=== PATIENT | male | born 1955 | race Caucasian/White ===

== ENCOUNTER 2016-07-07 09:34 | Day surgery (SDC) | payer OTHER, BC ==
[~2016-07-07] VITALS: Ht 176.5 cm; Wt 92.9 kg
[~2016-07-07 09:34] MED LIST: AMLODIPINE BESYL5 MG PO; APRESOLINE100 MG PO; ASPIR 8181 M1 PO; ATORVASTATIN CA20 MG PO; BENICAR20 MG PO; CENTRUM SILVER1 EAC1 PO; DIALYVITE 3,001 EACH PO; DOXAZOSIN MESYLA2 MG PO; EPOGEN,PRO10000 UNIT IV; EPOGEN,PRO4000 UNITS; ESCITALOPRAM OX10 MG PO; FIORICET,ESG1 TABLET PO; FUROSEMIDE40 MG PO; GENTAMICIN SULF30 GM TP; GOLD BOND ULT D96 GM TP; HUMALOG100 UNIT/2 SC; HYDRALAZINE HC100 MG PO; INSULIN; ISOSORBIDE MONO30 MG PO; Imdur PO; LEVEMIR FL100 UNIT/1 SC; LEVEMIR FL100 UNITS/ SC; LIPITOR20 MG PO; LOPRESSOR50 MG PO; LOSARTAN POTASS50 MG PO; LYRICA50 MG PO; Lasix PO; Levaquin PO; Lopressor PO; NEXIUM40 MG PO; NITROSTAT0.4 MG SL; ONGLYZA5 MG PO; PANTOPRAZOLE SO40 MG PO; PERCOCET 5/31 TABLET PO; PROCRIT10000 UNI1 IV; PROCRIT10000 UNI1 SC; Percocet 5/325,Endoc PO; Protonix PO; Rocaltrol PO; Sodium Bicarbonate PO; TYLENOL COLD M1 EAC1; TYLENOL COLD M1 EAC1 PO; TYLENOL EXTRA500 MG PO; TYLENOL REGULA325 MG PO; VANCOCIN HCL125 MG PO; VICODIN 5-3001 EACH PO; VITAMIN D1000 INTUN PO
[2016-07-07 10:13] LABS: POINT-OF-CARE METER ID UU13113696
[2016-07-07] MEDS ORDERED: ASPIR 8181 M1 PO (10:19)
[2016-07-07 14:09] LABS: POINT-OF-CARE METER ID UU13113819
[2016-07-07 16:05] VITALS: BP 161/99; BP 169/99
[2016-07-07 20:00] VITALS: BP 181/76
[2016-07-07 21:11] LABS: POINT-OF-CARE METER ID UU13113698
[2016-07-07 21:15] LABS: C DIFF TOXIN NEGATIVE (NEGATIVE)
[2016-07-07 21:21] LABS: PROBE CHECK PASS; SPECIMEN PROCESSING CONTROL PASS
[2016-07-08 04:00] VITALS: BP 165/79
[2016-07-08 05:51] LABS: EOSINOPHIL (%) 0 % (0-5); HEMATOCRIT 30.3 % (38.0-50.0); IMMATURE GRANULOCYTE (%) 0.3 % (0.0-0.7); LYMPHOCYTE COUNT 0.6 K/uL (1.0-2.8); MCH 29.1 PG (29.0-34.0); MCHC 34.3 G/DL (30.0-36.0); MEAN PLAT.VOLUME 10.4 uM^3 (9.0-12.4); MONOCYTE (%) 3.3 % (3-12); MONOCYTE COUNT 0.2 K/uL (0-0.8); NEUTROPHIL (%) 85.2 % (45-76); PLATELET COUNT 256 K/uL (156-360); RBC DIS.WIDTH-CV 12.9 % (11.8-14.6); RED BLOOD COUNT 3.58 M/uL (4.00-5.50)
[2016-07-08 06:35] LABS: ANION GAP 18 MEQ/L (2-14); CHLORIDE 90 MEQ/L (99-109); GFR ESTIMATE (CALCULATED) 7 mL/min/; GLUCOSE 453 mg/dL (70-99); POTASSIUM 4.4 MEQ/L (3.7-5.4); SAMPLE HEMOLYSIS CHECK 0; SAMPLE ICTERIC CHECK 0; SAMPLE LIPEMIA CHECK 0; SODIUM 128 MEQ/L (136-147); UREA NITROGEN (BUN) 51 mg/dL (9-23)
[2016-07-08 06:47] LABS: MCV 84.6 FL (86-99); WHITE BLOOD COUNT 5.8 K/uL (4.1-10.2)
[2016-07-08 07:10] VITALS: BP 179/99
[2016-07-08] MEDS ORDERED: CLOPIDOGREL75 MG PO (10:57)
[2016-07-08] MEDS ORDERED: ASPIR-LOW81 MG PO (10:57)
== END 2016-07-08 14:12 | disposition home or self-care (01) ==
LOC: CATH 09:34 → 2SOUTH 13:17 → 4EAST 13:17
PROVIDERS: Internal Medicine Cardiovascular Disease
DX: R07.9 Chest pain, unspecified (principal); I25.10 Atherosclerotic heart disease of native coronary artery without angina pectoris; R06.09 Other forms of dyspnea; I25.5 Ischemic cardiomyopathy; I12.0 Hypertensive chronic kidney disease with stage 5 chronic kidney disease or end stage renal disease; E11.22 Type 2 diabetes mellitus with diabetic chronic kidney disease; N18.6 End stage renal disease; Z99.2 Dependence on renal dialysis; I27.2 Other secondary pulmonary hypertension; D64.9 Anemia, unspecified; Z79.4 Long term (current) use of insulin; Z79.82 Long term (current) use of aspirin; Z88.0 Allergy status to penicillin
CPT/HCPCS: 80048; 82948; 85025; 85347; 87493; 93005; C1725; C1769; C1874; C1887; G0378; J0153; J0583; J1200; J1644; J1815; J2250; J2405; J2930; J3010; J7050; S0028

== ENCOUNTER 2016-07-11 14:58 | Inpatient (IN) | payer OTHER, BC ==
[~2016-07-11] VITALS: Ht 175.3 cm; Wt 92.0 kg
[~2016-07-11 14:58] MED LIST changes: +ASPIR-LOW81 MG PO; +CLOPIDOGREL75 MG PO
[2016-07-11 15:58] LABS: CHLORIDE 92 mEq/L (99-109); SODIUM 128 mEq/L (136-147)
[2016-07-11 16:00] LABS: GLUCOSE 277 mg/dL (70-99); HEMATOCRIT 27.1 % (38.0-50.0); MCH 29.6 PG (29.0-34.0); MCHC 34.7 G/DL (30.0-36.0); MCV 85.2 FL (86-99); MEAN PLAT.VOLUME 10.2 uM^3 (9.0-12.4); PLATELET COUNT 241 K/uL (156-360); RBC DIS.WIDTH-CV 12.9 % (11.8-14.6); RBC DIS.WIDTH-SD 40.2 % (39-53); RED BLOOD COUNT 3.18 M/uL (4.00-5.50); WHITE BLOOD COUNT 20.7 K/uL (4.1-10.2)
[2016-07-11 16:01] LABS: ANION GAP 16 MEQ/L (2-14)
[2016-07-11 16:02] LABS: POTASSIUM 3.3 mEq/L (3.7-5.4); TOTAL BILIRUBIN 0.3 mg/dL (0.0-1.0)
[2016-07-11 16:04] LABS: ALKALINE PHOSPHATASE 97 IU/L (3-129); GFR ESTIMATE (CALCULATED) 7 mL/min/
[2016-07-11 16:05] LABS: UREA NITROGEN (BUN) 49 mg/dL (9-23)
[2016-07-11 16:06] LABS: DIRECT BILIRUBIN 0.1 mg/dL (0.0-0.3); TROP-I INTERPRETATION INDETERMINATE
[2016-07-11 16:07] LABS: LIPASE 16 U/L (1.0-51.0)
[2016-07-11 16:09] LABS: C DIFF TOXIN ND (NEGATIVE)
[2016-07-11 17:29] LABS: C DIFF TOXIN NEGATIVE (NEGATIVE)
[2016-07-11 17:33] LABS: INTER. NORMALIZED RATIO 1.2; PROTHROMBIN TIME 12.7 (9.2-11.2)
[2016-07-11 17:49] LABS: PROBE CHECK PASS; SPECIMEN PROCESSING CONTROL PASS
[2016-07-11] MEDS ORDERED: PLAVIX75 MG PO (18:24)
[2016-07-11] MEDS ORDERED: LO-DOSE ASPIRIN81 M1 PO (18:25)
[2016-07-11] MEDS ORDERED: K-DUR20 MEQ PO (18:26)
[2016-07-11] MEDS ORDERED: PHOSLYRA667 MG/5 M PO (18:26)
[2016-07-11 20:00] VITALS: BP 158/77
[2016-07-11 20:10] VITALS: BP 158/77
[2016-07-11 21:15] LABS: POINT-OF-CARE METER ID UU13113781
[2016-07-11 23:00] VITALS: BP 155/78
[2016-07-12 00:56] LABS: TROP-I INTERPRETATION INDETERMINATE; TROPONIN-I 0.58 ng/mL (0.0-0.30)
[2016-07-12 03:55] VITALS: BP 175/91
[2016-07-12 07:49] LABS: POINT-OF-CARE METER ID UU13113781
[2016-07-12 08:10] VITALS: BP 155/76
[2016-07-12 09:08] LABS: HEMATOCRIT 24.7 % (38.0-50.0); MCH 29.4 PG (29.0-34.0); MCV 86.4 FL (86-99); MEAN PLAT.VOLUME 10.5 uM^3 (9.0-12.4); PLATELET COUNT 209 K/uL (156-360); RBC DIS.WIDTH-CV 13.1 % (11.8-14.6); RBC DIS.WIDTH-SD 41.3 % (39-53); RED BLOOD COUNT 2.86 M/uL (4.00-5.50); WHITE BLOOD COUNT 17.7 K/uL (4.1-10.2)
[2016-07-12 09:18] LABS: ANION GAP 14 MEQ/L (2-14); CHLORIDE 94 MEQ/L (99-109); POTASSIUM 3.9 MEQ/L (3.7-5.4); SAMPLE HEMOLYSIS CHECK 0; SAMPLE ICTERIC CHECK 0; SAMPLE LIPEMIA CHECK 0; SODIUM 129 MEQ/L (136-147)
[2016-07-12 09:29] LABS: TROP-I INTERPRETATION POSITIVE; TROPONIN-I 0.71 ng/mL (0.0-0.30)
[2016-07-12 09:34] LABS: GFR ESTIMATE (CALCULATED) 7 mL/min/; GLUCOSE 141 mg/dL (70-99); UREA NITROGEN (BUN) 52 mg/dL (9-23)
[2016-07-12 11:19] VITALS: BP 136/82
[2016-07-12 12:02] LABS: TYPE OF FLUID PD FLUID
[2016-07-12 12:31] LABS: BODY FLUID RBC'S 65 /MM^3 (0-100); BODY FLUID WBC'S 18200 /MM^3 (0-500); RED CELL AREA COUNTED 18; RED CELL DILUTION 1; WBC AREA COUNTED 0.4; WBC DILUTION 1; WHITE CELL RAW COUNT 728
[2016-07-12 13:09] LABS: BODY FLUID EOSINOPHILS 0 % (0-25); MONO RAW COUNT 4; MONONUCLEAR WBC'S 4 %; POLY RAW COUNT 96; POLYNUCLEAR WBC'S 96 % (0-25)
[2016-07-12 15:04] LABS: TROP-I INTERPRETATION POSITIVE; TROPONIN-I 0.62 ng/mL (0.0-0.30)
[2016-07-12 15:39] LABS: POINT-OF-CARE METER ID UU14174216
[2016-07-12 19:28] VITALS: BP 159/81
[2016-07-12 23:44] VITALS: BP 132/71
[2016-07-13 03:38] VITALS: BP 169/77
[2016-07-13 04:59] LABS: EOSINOPHIL (%) 1.5 % (0-5); EOSINOPHIL COUNT 0.2 K/uL (0-0.3); HEMATOCRIT 24.1 % (38.0-50.0); IMMATURE GRANULOCYTE (%) 0.4 % (0.0-0.7); IMMATURE GRANULOCYTE COUNT 0.1 K/uL; INSTRUMENT ABS NEUTROPHIL CT 10.2 K/uL; MCH 29.4 PG (29.0-34.0); MCV 86.4 FL (86-99); MEAN PLAT.VOLUME 10.7 uM^3 (9.0-12.4); MONOCYTE (%) 7.4 % (3-12); MONOCYTE COUNT 0.9 K/uL (0-0.8); NEUTROPHIL (%) 82.4 % (45-76); NEUTROPHIL COUNT 10.2 K/uL (1.8-6.4); PLATELET COUNT 231 K/uL (156-360); RBC DIS.WIDTH-CV 12.8 % (11.8-14.6); RBC DIS.WIDTH-SD 40.8 % (39-53); RED BLOOD COUNT 2.79 M/uL (4.00-5.50); WHITE BLOOD COUNT 12.4 K/uL (4.1-10.2)
[2016-07-13 05:11] LABS: CHLORIDE 96 mEq/L (99-109); MAGNESIUM 1.3 mg/dL (1.3-2.7); POTASSIUM 3.6 mEq/L (3.7-5.4); SODIUM 129 mEq/L (136-147)
[2016-07-13 05:14] LABS: ANION GAP 13 MEQ/L (2-14)
[2016-07-13 05:17] LABS: GFR ESTIMATE (CALCULATED) 7 mL/min/; UREA NITROGEN (BUN) 50 mg/dL (9-23)
[2016-07-13 05:20] LABS: GLUCOSE 236 mg/dL (70-99)
[2016-07-13 10:01] LABS: TROP-I INTERPRETATION INDETERMINATE; TROPONIN-I 0.48 ng/mL (0.0-0.30)
[2016-07-13 10:12] VITALS: BP 165/79
[2016-07-13 11:55] VITALS: BP 168/79
[2016-07-13 16:15] VITALS: BP 159/78
[2016-07-13 20:20] VITALS: BP 161/86
[2016-07-14] VITALS (7 sets, daily range): BP systolic 140–175; BP diastolic 64–82
[2016-07-14 05:56] LABS: EOSINOPHIL (%) 2.5 % (0-5); EOSINOPHIL COUNT 0.3 K/uL (0-0.3); HEMATOCRIT 25.7 % (38.0-50.0); IMMATURE GRANULOCYTE (%) 0.4 % (0.0-0.7); INSTRUMENT ABS NEUTROPHIL CT 8.4 K/uL; MCH 29.7 PG (29.0-34.0); MCHC 34.6 G/DL (30.0-36.0); MCV 85.7 FL (86-99); MEAN PLAT.VOLUME 10.6 uM^3 (9.0-12.4); MONOCYTE (%) 8.8 % (3-12); MONOCYTE COUNT 0.9 K/uL (0-0.8); NEUTROPHIL (%) 78.8 % (45-76); NEUTROPHIL COUNT 8.4 K/uL (1.8-6.4); PLATELET COUNT 254 K/uL (156-360); RBC DIS.WIDTH-CV 12.9 % (11.8-14.6); RBC DIS.WIDTH-SD 40.2 % (39-53); WHITE BLOOD COUNT 10.6 K/uL (4.1-10.2)
[2016-07-14 06:37] LABS: ANION GAP 15 MEQ/L (2-14); CHLORIDE 91 MEQ/L (99-109); GFR ESTIMATE (CALCULATED) 7 mL/min/; GLUCOSE 296 mg/dL (70-99); MAGNESIUM 1.6 mg/dl (1.3-2.7); POTASSIUM 3.4 MEQ/L (3.7-5.4); SAMPLE HEMOLYSIS CHECK 0; SAMPLE ICTERIC CHECK 0; SAMPLE LIPEMIA CHECK 0; SODIUM 130 MEQ/L (136-147); UREA NITROGEN (BUN) 44 mg/dL (9-23)
[2016-07-14 06:56] LABS: Estimated Average Glucose 174 mg/dL (70-123); HEMOGLOBIN A1c (GLYCOHEMOGLOB) 7.7 % HGB (Below 5.7)
[2016-07-14 07:35] LABS: POINT-OF-CARE METER ID UU13113781
[2016-07-15 04:52] VITALS: BP 150/73
[2016-07-15 06:49] LABS: EOSINOPHIL (%) 3.2 % (0-5); EOSINOPHIL COUNT 0.3 K/uL (0-0.3); HEMATOCRIT 25.5 % (38.0-50.0); IMMATURE GRANULOCYTE (%) 0.6 % (0.0-0.7); IMMATURE GRANULOCYTE COUNT 0.1 K/uL; INSTRUMENT ABS NEUTROPHIL CT 6.2 K/uL; LYMPHOCYTE COUNT 1.6 K/uL (1.0-2.8); MCHC 33.7 G/DL (30.0-36.0); MCV 85.9 FL (86-99); MEAN PLAT.VOLUME 10.2 uM^3 (9.0-12.4); MONOCYTE (%) 12.6 % (3-12); MONOCYTE COUNT 1.2 K/uL (0-0.8); NEUTROPHIL (%) 66.6 % (45-76); NEUTROPHIL COUNT 6.2 K/uL (1.8-6.4); PLATELET COUNT 238 K/uL (156-360); RBC DIS.WIDTH-SD 40.4 % (39-53); RED BLOOD COUNT 2.97 M/uL (4.00-5.50); WHITE BLOOD COUNT 9.3 K/uL (4.1-10.2)
[2016-07-15 07:16] LABS: ANION GAP 12 MEQ/L (2-14); CHLORIDE 93 MEQ/L (99-109); GFR ESTIMATE (CALCULATED) 7 mL/min/; POTASSIUM 3.2 MEQ/L (3.7-5.4); SAMPLE HEMOLYSIS CHECK 0; SAMPLE ICTERIC CHECK 0; SAMPLE LIPEMIA CHECK 0; SODIUM 131 MEQ/L (136-147); UREA NITROGEN (BUN) 39 mg/dL (9-23)
[2016-07-15 07:17] LABS: GLUCOSE 129 mg/dL (70-99)
[2016-07-15 09:20] VITALS: BP 157/68
[2016-07-15 13:55] VITALS: BP 118/66
[2016-07-15 14:29] LABS: TYPE OF FLUID PERITONEAL
[2016-07-15 15:45] LABS: BODY FLUID RBC'S 13 /MM^3 (0-100); BODY FLUID WBC'S 12 /MM^3 (0-500); RED CELL AREA COUNTED 18; RED CELL DILUTION 1; WBC AREA COUNTED 18; WBC DILUTION 1; WHITE CELL RAW COUNT 21
[2016-07-15 15:56] LABS: BODY FLUID EOSINOPHILS 1 % (0-25); MONO RAW COUNT 58; MONONUCLEAR WBC'S 58 %; POLY RAW COUNT 41; POLYNUCLEAR WBC'S 41 % (0-25)
[2016-07-15 16:37] VITALS: BP 145/74
[2016-07-15 19:54] VITALS: BP 131/66
[2016-07-15 23:30] VITALS: BP 142/69
[2016-07-16 04:54] VITALS: BP 149/71
[2016-07-16 06:14] LABS: EOSINOPHIL (%) 3.6 % (0-5); EOSINOPHIL COUNT 0.3 K/uL (0-0.3); HEMATOCRIT 26.2 % (38.0-50.0); IMMATURE GRANULOCYTE (%) 0.4 % (0.0-0.7); LYMPHOCYTE COUNT 1.6 K/uL (1.0-2.8); MCH 29.5 PG (29.0-34.0); MCV 86.8 FL (86-99); MEAN PLAT.VOLUME 10.6 uM^3 (9.0-12.4); MONOCYTE COUNT 1.1 K/uL (0-0.8); PLATELET COUNT 259 K/uL (156-360); RBC DIS.WIDTH-CV 13.1 % (11.8-14.6); RBC DIS.WIDTH-SD 41.5 % (39-53); RED BLOOD COUNT 3.02 M/uL (4.00-5.50); WHITE BLOOD COUNT 9.1 K/uL (4.1-10.2)
[2016-07-16 06:46] LABS: ANION GAP 11 MEQ/L (2-14); CHLORIDE 94 MEQ/L (99-109); GFR ESTIMATE (CALCULATED) 8 mL/min/; POTASSIUM 3.3 MEQ/L (3.7-5.4); SAMPLE HEMOLYSIS CHECK 0; SAMPLE ICTERIC CHECK 0; SAMPLE LIPEMIA CHECK 0; SODIUM 131 MEQ/L (136-147); UREA NITROGEN (BUN) 32 mg/dL (9-23)
[2016-07-16 06:48] LABS: GLUCOSE 93 mg/dL (70-99)
[2016-07-16 07:29] LABS: POINT-OF-CARE METER ID UU14174216
[2016-07-16 08:18] VITALS: BP 162/85
[2016-07-16 11:27] VITALS: BP 136/77
[2016-07-16 11:32] LABS: POINT-OF-CARE METER ID UU14174216
[2016-07-16 15:00] VITALS: BP 159/79
[2016-07-16 16:22] LABS: POINT-OF-CARE METER ID UU14174216
[2016-07-16 19:11] VITALS: BP 143/69
[2016-07-17 01:15] VITALS: BP 141/71
[2016-07-17 05:58] LABS: POINT-OF-CARE METER ID UU14174216
[2016-07-17 06:59] LABS: ANION GAP 10 MEQ/L (2-14); CHLORIDE 93 MEQ/L (99-109); GFR ESTIMATE (CALCULATED) 8 mL/min/; GLUCOSE 72 mg/dL (70-99); POTASSIUM 3.4 MEQ/L (3.7-5.4); SAMPLE HEMOLYSIS CHECK 0; SAMPLE ICTERIC CHECK 0; SAMPLE LIPEMIA CHECK 0; SODIUM 131 MEQ/L (136-147); UREA NITROGEN (BUN) 30 mg/dL (9-23)
[2016-07-17 07:01] LABS: VANCOMYCIN, TROUGH 14.6 MCG/ML (10-20)
[2016-07-17 07:52] VITALS: BP 140/60; BP 160/64
[2016-07-17 11:16] VITALS: BP 142/74
[2016-07-17 15:10] VITALS: BP 142/67
[2016-07-17 16:24] LABS: POINT-OF-CARE METER ID UU13113781
[2016-07-17 18:58] VITALS: BP 144/91
[2016-07-17 21:11] LABS: POINT-OF-CARE METER ID UU13113725
[2016-07-17 23:10] VITALS: BP 140/74
[2016-07-18 06:22] LABS: POINT-OF-CARE METER ID UU13113725
[2016-07-18 07:38] VITALS: BP 153/77
[2016-07-18 09:19] LABS: EOSINOPHIL (%) 2.8 % (0-5); EOSINOPHIL COUNT 0.3 K/uL (0-0.3); HEMATOCRIT 27.5 % (38.0-50.0); IMMATURE GRANULOCYTE (%) 0.8 % (0.0-0.7); IMMATURE GRANULOCYTE COUNT 0.1 K/uL; INSTRUMENT ABS NEUTROPHIL CT 6.5 K/uL; LYMPHOCYTE COUNT 1.4 K/uL (1.0-2.8); MCH 29.1 PG (29.0-34.0); MCHC 33.8 G/DL (30.0-36.0); MCV 85.9 FL (86-99); MONOCYTE (%) 6.7 % (3-12); MONOCYTE COUNT 0.6 K/uL (0-0.8); NEUTROPHIL (%) 73.6 % (45-76); NEUTROPHIL COUNT 6.5 K/uL (1.8-6.4); PLATELET COUNT 258 K/uL (156-360); RBC DIS.WIDTH-CV 12.7 % (11.8-14.6); RBC DIS.WIDTH-SD 40.2 % (39-53); WHITE BLOOD COUNT 8.9 K/uL (4.1-10.2)
[2016-07-18 09:53] LABS: ANION GAP 11 MEQ/L (2-14); CHLORIDE 90 MEQ/L (99-109); GFR ESTIMATE (CALCULATED) 9 mL/min/; SAMPLE HEMOLYSIS CHECK 1; SAMPLE ICTERIC CHECK 0; SAMPLE LIPEMIA CHECK 0; SODIUM 129 MEQ/L (136-147); UREA NITROGEN (BUN) 26 mg/dL (9-23)
[2016-07-18 09:54] LABS: GLUCOSE 140 mg/dL (70-99); POTASSIUM 3.9 MEQ/L (3.7-5.4)
[2016-07-18 10:59] LABS: POINT-OF-CARE METER ID UU13113725
[2016-07-18 11:28] LABS: POINT-OF-CARE METER ID UU13113725
[2016-07-18 21:54] LABS: POINT-OF-CARE METER ID UU13113725
[2016-07-18 22:03] VITALS: BP 147/84
[2016-07-18 23:21] VITALS: BP 149/68
[2016-07-19 05:17] VITALS: BP 133/69
[2016-07-19 06:12] LABS: POINT-OF-CARE METER ID UU13113725
[2016-07-19 08:08] LABS: VANCOMYCIN, TROUGH 19.9 MCG/ML (10-20)
[2016-07-19 08:39] VITALS: BP 130/69
[2016-07-19 10:51] LABS: POINT-OF-CARE METER ID UU13113725
[2016-07-19 16:40] VITALS: BP 138/78
[2016-07-19 21:15] LABS: POINT-OF-CARE METER ID UU13113725
[2016-07-19 22:00] VITALS: BP 160/77
[2016-07-20] VITALS: BP 146/71
[2016-07-20 05:31] VITALS: BP 151/72
[2016-07-20 07:11] LABS: HEMATOCRIT 24.3 % (38.0-50.0); MCHC 33.7 G/DL (30.0-36.0); MCV 85.9 FL (86-99); MEAN PLAT.VOLUME 10.1 uM^3 (9.0-12.4); PLATELET COUNT 230 K/uL (156-360); RBC DIS.WIDTH-CV 12.5 % (11.8-14.6); RBC DIS.WIDTH-SD 39.1 % (39-53); RED BLOOD COUNT 2.83 M/uL (4.00-5.50); WHITE BLOOD COUNT 6.9 K/uL (4.1-10.2)
[2016-07-20 07:30] VITALS: BP 159/79
[2016-07-20 07:37] LABS: ANION GAP 11 MEQ/L (2-14); CHLORIDE 89 MEQ/L (99-109); GFR ESTIMATE (CALCULATED) 10 mL/min/; SAMPLE HEMOLYSIS CHECK 1; SAMPLE ICTERIC CHECK 0; SAMPLE LIPEMIA CHECK 0; SODIUM 127 MEQ/L (136-147); UREA NITROGEN (BUN) 26 mg/dL (9-23)
[2016-07-20 07:39] LABS: GLUCOSE 238 mg/dL (70-99); POTASSIUM 4.5 MEQ/L (3.7-5.4)
[2016-07-20] MEDS ORDERED: ENDOCET 5-3251 EACH PO (08:34)
[2016-07-20] MEDS ORDERED: LOPERAMIDE2 MG PO (08:34)
[2016-07-20] MEDS ORDERED: IMDUR30 MG PO (08:34)
[2016-07-20] MEDS ORDERED: ZOFRAN4 MG PO (09:25)
[2016-07-20 11:44] LABS: POINT-OF-CARE METER ID UU13113725
== END 2016-07-20 12:30 | disposition home or self-care (01) | DRG 919 ==
LOC: EME 14:58 → EDOF 16:39 → 4EAST 16:39 → EDOF 16:39 → 4EAST 19:50 → 5EAST 07-17 16:43
PROVIDERS: Emergency Medicine; Hospitalist; Internal Medicine; Internal Medicine Nephrology; Nurse Practitioner Family; Physician Assistant Medical
PROC: 3E1M39Z Irrigation of Peritoneal Cavity using Dialysate, Percutaneous Approach (ICD-10-PCS; principal; 2016-07-12)
DX: T85.71XA Infection and inflammatory reaction due to peritoneal dialysis catheter, initial encounter (principal); K65.9 Peritonitis, unspecified; A41.9 Sepsis, unspecified organism; N18.6 End stage renal disease; E87.2 Acidosis; E87.1 Hypo-osmolality and hyponatremia; I24.8 Other forms of acute ischemic heart disease; I12.0 Hypertensive chronic kidney disease with stage 5 chronic kidney disease or end stage renal disease; Y84.1 Kidney dialysis as the cause of abnormal reaction of the patient, or of later complication, without mention of misadventure at the time of the procedure; E87.6 Hypokalemia; I25.10 Atherosclerotic heart disease of native coronary artery without angina pectoris; D63.1 Anemia in chronic kidney disease; E11.21 Type 2 diabetes mellitus with diabetic nephropathy; E11.22 Type 2 diabetes mellitus with diabetic chronic kidney disease; E11.319 Type 2 diabetes mellitus with unspecified diabetic retinopathy without macular edema; E11.40 Type 2 diabetes mellitus with diabetic neuropathy, unspecified; E11.51 Type 2 diabetes mellitus with diabetic peripheral angiopathy without gangrene; E78.2 Mixed hyperlipidemia; K21.9 Gastro-esophageal reflux disease without esophagitis; E66.9 Obesity, unspecified; Z68.29 Body mass index [BMI] 29.0-29.9, adult; Z79.4 Long term (current) use of insulin; Z79.02 Long term (current) use of antithrombotics/antiplatelets; Z99.2 Dependence on renal dialysis; Z95.5 Presence of coronary angioplasty implant and graft; Z88.0 Allergy status to penicillin; Z91.040 Latex allergy status
CPT/HCPCS: 71020; 74176; 80048; 80076; 80170; 80202; 82565; 82948; 83036; 83605; 83690; 83735; 84100; 84484; 85025; 85027; 85610; 85730; 87070; 87075; 87205; 87493; 89051; 93005; 99281; 99285; G0378; J1580; J1626; J1644; J1815; J2270; J2405; J3010; J3370; J3480; J7030; J7050; S0073

== ENCOUNTER 2016-08-31 08:39 | Observation (INO) | payer OTHER, BC ==
[2016-08-31] VITALS (16 sets, daily range): BP systolic 102–180; BP diastolic 55–84
[~2016-08-31] VITALS: Ht 175.3 cm; Wt 89.1 kg
[~2016-08-31 08:39] MED LIST changes: +ENDOCET 5-3251 EACH PO; +IMDUR30 MG PO; +K-DUR20 MEQ PO; +LO-DOSE ASPIRIN81 M1 PO; +LOPERAMIDE2 MG PO; +PHOSLYRA667 MG/5 M PO; +PLAVIX75 MG PO; +ZOFRAN4 MG PO
[2016-08-31 10:06] LABS: HEMATOCRIT 18.7 % (38.0-50.0); MCH 28.5 PG (29.0-34.0); MCHC 34.8 G/DL (30.0-36.0); MEAN PLAT.VOLUME 9.7 uM^3 (9.0-12.4); PLATELET COUNT 239 K/uL (156-360); RBC DIS.WIDTH-CV 12.9 % (11.8-14.6); RBC DIS.WIDTH-SD 38.5 % (39-53); RED BLOOD COUNT 2.28 M/uL (4.00-5.50); WHITE BLOOD COUNT 5.6 K/uL (4.1-10.2)
[2016-08-31 10:10] LABS: CHLORIDE 92 mEq/L (99-109); POTASSIUM 4.4 mEq/L (3.7-5.4); SODIUM 131 mEq/L (136-147)
[2016-08-31 10:12] LABS: GLUCOSE 171 mg/dL (70-99)
[2016-08-31 10:13] LABS: ANION GAP 13 MEQ/L (2-14)
[2016-08-31 10:16] LABS: GFR ESTIMATE (CALCULATED) 6 mL/min/
[2016-08-31 10:17] LABS: UREA NITROGEN (BUN) 38 mg/dL (9-23)
[2016-08-31 10:21] LABS: TROP-I INTERPRETATION NEGATIVE; TROPONIN-I 0.04 ng/mL (0.0-0.30)
[2016-08-31 10:31] LABS: POINT-OF-CARE METER ID UU13113702
[2016-08-31 10:59] LABS: INTER. NORMALIZED RATIO 1.1; PROTHROMBIN TIME 11.1 (9.2-11.2); PTT 31.5 (25-32)
[2016-08-31 14:27] LABS: POINT-OF-CARE METER ID UU14174216
[2016-08-31 16:39] LABS: POINT-OF-CARE USER ID NUTSLF44
[2016-08-31 19:04] LABS: TROP-I INTERPRETATION NEGATIVE; TROPONIN-I 0.04 ng/mL (0.0-0.30)
[2016-08-31 23:17] LABS: TROP-I INTERPRETATION NEGATIVE; TROPONIN-I 0.03 ng/mL (0.0-0.30)
[2016-09-01 00:38] VITALS: BP 171/84
[2016-09-01 04:05] VITALS: BP 179/88
[2016-09-01 07:56] LABS: EOSINOPHIL (%) 3.6 % (0-5); EOSINOPHIL COUNT 0.2 K/uL (0-0.3); HEMATOCRIT 22.5 % (38.0-50.0); IMMATURE GRANULOCYTE (%) 0.4 % (0.0-0.7); INSTRUMENT ABS NEUTROPHIL CT 3.7 K/uL; LYMPHOCYTE COUNT 1.1 K/uL (1.0-2.8); MCHC 34.2 G/DL (30.0-36.0); MCV 81.8 FL (86-99); MEAN PLAT.VOLUME 10.1 uM^3 (9.0-12.4); MONOCYTE (%) 9.5 % (3-12); MONOCYTE COUNT 0.5 K/uL (0-0.8); NEUTROPHIL (%) 66.7 % (45-76); NEUTROPHIL COUNT 3.7 K/uL (1.8-6.4); PLATELET COUNT 247 K/uL (156-360); RBC DIS.WIDTH-CV 13.2 % (11.8-14.6); RBC DIS.WIDTH-SD 39.3 % (39-53); WHITE BLOOD COUNT 5.5 K/uL (4.1-10.2)
[2016-09-01 08:03] LABS: RED BLOOD COUNT 2.75 M/uL (4.00-5.50)
[2016-09-01 08:15] VITALS: BP 176/84
[2016-09-01 08:27] LABS: CHLORIDE 93 mEq/L (99-109); POTASSIUM 4.5 mEq/L (3.7-5.4); SODIUM 131 mEq/L (136-147)
[2016-09-01 08:29] LABS: GLUCOSE 272 mg/dL (70-99)
[2016-09-01 08:30] LABS: ANION GAP 11 MEQ/L (2-14)
[2016-09-01 08:32] LABS: GFR ESTIMATE (CALCULATED) 7 mL/min/
[2016-09-01 08:33] LABS: UREA NITROGEN (BUN) 38 mg/dL (9-23)
[2016-09-01 11:43] VITALS: BP 162/78
== END 2016-09-01 14:57 | disposition home or self-care (01) ==
LOC: EME 08:39 → EDOF 10:36 → 4EAST 10:36
PROVIDERS: Emergency Medicine; Hospitalist; Internal Medicine; Internal Medicine Nephrology
PROC: 30233N1 Transfusion of Nonautologous Red Blood Cells into Peripheral Vein, Percutaneous Approach (ICD-10-PCS; principal; 2016-08-31)
DX: R07.89 Other chest pain (principal); S81.811A Laceration without foreign body, right lower leg, initial encounter; W22.03XA Walked into furniture, initial encounter; I16.1 Hypertensive emergency; I12.0 Hypertensive chronic kidney disease with stage 5 chronic kidney disease or end stage renal disease; E11.22 Type 2 diabetes mellitus with diabetic chronic kidney disease; E11.21 Type 2 diabetes mellitus with diabetic nephropathy; N18.6 End stage renal disease; E11.40 Type 2 diabetes mellitus with diabetic neuropathy, unspecified; E11.319 Type 2 diabetes mellitus with unspecified diabetic retinopathy without macular edema; Z99.2 Dependence on renal dialysis; G43.909 Migraine, unspecified, not intractable, without status migrainosus; K21.9 Gastro-esophageal reflux disease without esophagitis; F32.9 Major depressive disorder, single episode, unspecified; E78.5 Hyperlipidemia, unspecified; D64.9 Anemia, unspecified; I25.10 Atherosclerotic heart disease of native coronary artery without angina pectoris; I25.2 Old myocardial infarction
CPT/HCPCS: 71020; 80048; 82948; 84484; 85014; 85018; 85025; 85027; 85610; 85730; 86900; 86901; 86905; 86920; 93005; 99281; 99285; G0378; J0360; J1815; J2270; J2405; P9016

== ENCOUNTER 2016-10-21 21:34 | Emergency (ER) | payer OTHER, BC ==
[~2016-10-21] VITALS: Ht 175.3 cm; Wt 84.1 kg
[2016-10-21] MEDS ORDERED: NORCO 5/3251 TABLET PO (23:05)
[2016-10-21] MEDS ORDERED: CLINDAMYCIN HC300 MG PO (23:05)
[2016-10-21] MEDS ORDERED: MOTRIN600 MG PO (23:05)
[2016-10-21 23:14] VITALS: BP 133/78
== END 2016-10-21 23:15 | disposition home or self-care (01) ==
LOC: EME 21:34
DX: K02.9 Dental caries, unspecified (principal); Z88.0 Allergy status to penicillin; I25.10 Atherosclerotic heart disease of native coronary artery without angina pectoris; N18.9 Chronic kidney disease, unspecified; E11.22 Type 2 diabetes mellitus with diabetic chronic kidney disease
CPT/HCPCS: 99281; 99284

== ENCOUNTER 2016-11-15 20:17 | Emergency (ER) | payer OTHER, BC ==
[~2016-11-15] VITALS: Ht 175.3 cm; Wt 84.1 kg
[~2016-11-15 20:17] MED LIST changes: +CLINDAMYCIN HC300 MG PO; +MOTRIN600 MG PO; +NORCO 5/3251 TABLET PO
[2016-11-15 21:41] LABS: EOSINOPHIL (%) 4.7 % (0-5); EOSINOPHIL COUNT 0.3 K/uL (0-0.3); HEMATOCRIT 22.9 % (38.0-50.0); IMMATURE GRANULOCYTE (%) 0.3 % (0.0-0.7); INSTRUMENT ABS NEUTROPHIL CT 4.5 K/uL; LYMPHOCYTE COUNT 1.4 K/uL (1.0-2.8); MCH 30.4 PG (29.0-34.0); MCHC 36.7 G/DL (30.0-36.0); MEAN PLAT.VOLUME 9.4 uM^3 (9.0-12.4); MONOCYTE (%) 9.1 % (3-12); MONOCYTE COUNT 0.6 K/uL (0-0.8); NEUTROPHIL (%) 65.6 % (45-76); NEUTROPHIL COUNT 4.5 K/uL (1.8-6.4); PLATELET COUNT 244 K/uL (156-360); RBC DIS.WIDTH-CV 12.5 % (11.8-14.6); RBC DIS.WIDTH-SD 37.6 % (39-53); RED BLOOD COUNT 2.76 M/uL (4.00-5.50); WHITE BLOOD COUNT 6.8 K/uL (4.1-10.2)
[2016-11-15 21:52] LABS: CHLORIDE 92 mEq/L (99-109); POTASSIUM 3.7 mEq/L (3.7-5.4); SODIUM 130 mEq/L (136-147)
[2016-11-15 21:54] LABS: GLUCOSE 398 mg/dL (70-99)
[2016-11-15 21:56] LABS: ANION GAP 16 MEQ/L (2-14); TOTAL BILIRUBIN 0.5 mg/dL (0.0-1.0)
[2016-11-15 21:58] LABS: ALKALINE PHOSPHATASE 129 IU/L (3-129); GFR ESTIMATE (CALCULATED) 7 mL/min/
[2016-11-15 21:59] LABS: UREA NITROGEN (BUN) 51 mg/dL (9-23)
[2016-11-15 22:01] LABS: LIPASE 12 U/L (1.0-51.0)
[2016-11-15 22:42] LABS: TYPE OF FLUID PERITONEAL
[2016-11-15 23:07] LABS: BODY FLUID RBC'S < 1000 /MM^3 (0-100); BODY FLUID WBC'S 6 /MM^3 (0-500)
[2016-11-15 23:24] LABS: BODY FLUID EOSINOPHILS 1 % (0-25); MONO RAW COUNT 93; MONONUCLEAR WBC'S 93 %; POLY RAW COUNT 6; POLYNUCLEAR WBC'S 6 % (0-25)
[2016-11-15 23:39] VITALS: BP 154/81
== END 2016-11-15 23:45 | disposition home or self-care (01) ==
LOC: EME 20:17 → EXP 20:17
PROVIDERS: Physician Assistant
DX: T80.89XA Other complications following infusion, transfusion and therapeutic injection, initial encounter (principal); Y84.1 Kidney dialysis as the cause of abnormal reaction of the patient, or of later complication, without mention of misadventure at the time of the procedure; I12.0 Hypertensive chronic kidney disease with stage 5 chronic kidney disease or end stage renal disease; E11.22 Type 2 diabetes mellitus with diabetic chronic kidney disease; N18.6 End stage renal disease; Z99.2 Dependence on renal dialysis; Z79.4 Long term (current) use of insulin; K21.9 Gastro-esophageal reflux disease without esophagitis; F32.9 Major depressive disorder, single episode, unspecified; D64.9 Anemia, unspecified
CPT/HCPCS: 80053; 83605; 83690; 85025; 87070; 87205; 89051; 99281; 99285

== ENCOUNTER 2017-02-23 14:57 | Emergency (ER) | payer OTHER, BC ==
[~2017-02-23] VITALS: Ht 175.3 cm; Wt 85.9 kg
[2017-02-23 16:30] LABS: HEMATOCRIT 26.4 % (38.0-50.0); MCH 30.1 PG (29.0-34.0); MCHC 36.4 G/DL (30.0-36.0); MCV 82.8 FL (86-99); MEAN PLAT.VOLUME 10.2 uM^3 (9.0-12.4); PLATELET COUNT 235 K/uL (156-360); RBC DIS.WIDTH-CV 12.1 % (11.8-14.6); RED BLOOD COUNT 3.19 M/uL (4.00-5.50); WHITE BLOOD COUNT 8.8 K/uL (4.1-10.2)
[2017-02-23 16:35] LABS: CHLORIDE 91 mEq/L (99-109); POTASSIUM 4.5 mEq/L (3.7-5.4); SODIUM 128 mEq/L (136-147)
[2017-02-23 16:38] LABS: GLUCOSE 353 mg/dL (70-99)
[2017-02-23 16:39] LABS: ANION GAP 16 MEQ/L (2-14)
[2017-02-23 16:40] LABS: TOTAL BILIRUBIN 0.4 mg/dL (0.0-1.0)
[2017-02-23 16:41] LABS: ALKALINE PHOSPHATASE 113 IU/L (3-129); GFR ESTIMATE (CALCULATED) 6 mL/min/
[2017-02-23 16:42] LABS: UREA NITROGEN (BUN) 55 mg/dL (9-23)
[2017-02-23 16:45] LABS: LIPASE 36 U/L (1.0-51.0)
[2017-02-23 18:20] LABS: POINT-OF-CARE METER ID UU13113747
[2017-02-23 19:56] LABS: CARBON DIOXIDE (BICARBONATE) 28.5 MEQ/L (20-31)
[2017-02-23] MEDS ORDERED: ZOFRAN4 MG PO (20:48)
[2017-02-23] MEDS ORDERED: PERCOCET 5/31 TABLET PO (21:25)
[2017-02-23 21:43] VITALS: BP 183/91
== END 2017-02-23 22:00 | disposition home or self-care (01) ==
LOC: EME 14:57
PROVIDERS: Emergency Medicine
DX: M54.9 Dorsalgia, unspecified (principal); R10.9 Unspecified abdominal pain; R11.10 Vomiting, unspecified; K80.20 Calculus of gallbladder without cholecystitis without obstruction; I12.0 Hypertensive chronic kidney disease with stage 5 chronic kidney disease or end stage renal disease; E11.22 Type 2 diabetes mellitus with diabetic chronic kidney disease; N18.6 End stage renal disease; Z99.2 Dependence on renal dialysis; Z79.4 Long term (current) use of insulin; Z79.82 Long term (current) use of aspirin; K57.30 Diverticulosis of large intestine without perforation or abscess without bleeding
CPT/HCPCS: 71020; 74177; 76705; 80053; 81003; 82010; 82803; 82948; 83605; 83690; 85027; 99281; 99284; J2270; J2405

== ENCOUNTER 2017-03-12 18:48 | Inpatient (IN) | payer OTHER, BC ==
[~2017-03-12] VITALS: Ht 165.1 cm; Wt 88.6 kg
[2017-03-12 19:45] LABS: MCH 30.3 PG (29.0-34.0); MCV 86.6 FL (86-99); MEAN PLAT.VOLUME 10.4 uM^3 (9.0-12.4); PLATELET COUNT 218 K/uL (156-360); RBC DIS.WIDTH-CV 12.1 % (11.8-14.6); RBC DIS.WIDTH-SD 38.9 % (39-53); RED BLOOD COUNT 2.31 M/uL (4.00-5.50); WHITE BLOOD COUNT 9.9 K/uL (4.1-10.2)
[2017-03-12 19:50] LABS: CHLORIDE 90 mEq/L (99-109); POTASSIUM 4.7 mEq/L (3.7-5.4); SODIUM 128 mEq/L (136-147)
[2017-03-12 19:53] LABS: GLUCOSE 237 mg/dL (70-99)
[2017-03-12 19:54] LABS: ANION GAP 14 MEQ/L (2-14)
[2017-03-12 19:55] LABS: TOTAL BILIRUBIN 0.4 mg/dL (0.0-1.0)
[2017-03-12 19:56] LABS: ALKALINE PHOSPHATASE 104 IU/L (3-129); GFR ESTIMATE (CALCULATED) 6 mL/min/
[2017-03-12 19:57] LABS: UREA NITROGEN (BUN) 58 mg/dL (9-23)
[2017-03-12 20:21] LABS: TROP-I INTERPRETATION POSITIVE
[2017-03-12 20:26] LABS: TROPONIN-I 2.33 ng/mL (0.0-0.30)
[2017-03-12] MEDS ORDERED: SENSIPAR60 MG PO (21:10)
[2017-03-12] MEDS ORDERED: ONDANSETRON HCL4 MG PO (21:11)
[2017-03-12] MEDS ORDERED: CLOPIDOGREL75 MG PO (21:12)
[2017-03-12 21:45] LABS: LIPASE < 3.0 U/L (1.0-51.0)
[2017-03-12 23:39] LABS: TROP-I INTERPRETATION POSITIVE
[2017-03-12 23:41] LABS: TROPONIN-I 2.27 ng/mL (0.0-0.30)
[2017-03-13] VITALS (12 sets, daily range): BP systolic 121–173; BP diastolic 70–93
[2017-03-13 08:19] LABS: POINT-OF-CARE METER ID UU14174216; POINT-OF-CARE USER ID NUTSLF44
[2017-03-13 09:31] LABS: HEMATOCRIT 22.9 % (38.0-50.0); MCH 30.3 PG (29.0-34.0); MCHC 35.8 G/DL (30.0-36.0); MCV 84.5 FL (86-99); MEAN PLAT.VOLUME 10.4 uM^3 (9.0-12.4); PLATELET COUNT 211 K/uL (156-360); RBC DIS.WIDTH-CV 12.8 % (11.8-14.6); RBC DIS.WIDTH-SD 38.4 % (39-53); RED BLOOD COUNT 2.71 M/uL (4.00-5.50)
[2017-03-13 10:12] LABS: ANION GAP 11 MEQ/L (2-14); CHLORIDE 91 MEQ/L (99-109); GFR ESTIMATE (CALCULATED) 7 mL/min/; GLUCOSE 190 mg/dL (70-99); POTASSIUM 4.6 MEQ/L (3.7-5.4); SAMPLE HEMOLYSIS CHECK 0; SAMPLE ICTERIC CHECK 0; SAMPLE LIPEMIA CHECK 0; SODIUM 131 MEQ/L (136-147); UREA NITROGEN (BUN) 54 mg/dL (9-23)
[2017-03-13 11:56] LABS: POINT-OF-CARE METER ID UU14174216; POINT-OF-CARE USER ID NUTSLF44
[2017-03-13 16:41] LABS: TYPE OF FLUID PERITONEAL
[2017-03-13 16:52] LABS: POINT-OF-CARE METER ID UU14174216; POINT-OF-CARE USER ID ENVKC36
[2017-03-13 17:17] LABS: TROP-I INTERPRETATION POSITIVE; TROPONIN-I 1.26 ng/mL (0.0-0.30)
[2017-03-13 17:38] LABS: BODY FLUID RBC'S 1 /MM^3 (0-100); RED CELL AREA COUNTED 18; RED CELL DILUTION 1; WHITE CELL RAW COUNT 2
[2017-03-13 17:39] LABS: BODY FLUID WBC'S 1 /MM^3 (0-500); WBC AREA COUNTED 18; WBC DILUTION 1
[2017-03-13 21:03] LABS: BODY FLUID EOSINOPHILS 0 % (0-25); MONO RAW COUNT 9; MONONUCLEAR WBC'S 90 %; POLY RAW COUNT 1; POLYNUCLEAR WBC'S 10 % (0-25)
[2017-03-13 21:17] LABS: POINT-OF-CARE METER ID UU13113781
[2017-03-14] VITALS (8 sets, daily range): BP systolic 133–189; BP diastolic 72–90
[2017-03-14 05:35] LABS: EOSINOPHIL (%) 3.5 % (0-5); EOSINOPHIL COUNT 0.3 K/uL (0-0.3); HEMATOCRIT 25.9 % (38.0-50.0); IMMATURE GRANULOCYTE (%) 0.4 % (0.0-0.7); INSTRUMENT ABS NEUTROPHIL CT 6.4 K/uL; LYMPHOCYTE COUNT 1.2 K/uL (1.0-2.8); MCH 28.9 PG (29.0-34.0); MCV 84.9 FL (86-99); MEAN PLAT.VOLUME 10.3 uM^3 (9.0-12.4); MONOCYTE (%) 10.6 % (3-12); NEUTROPHIL (%) 72.1 % (45-76); NEUTROPHIL COUNT 6.4 K/uL (1.8-6.4); PLATELET COUNT 252 K/uL (156-360); RBC DIS.WIDTH-CV 12.8 % (11.8-14.6); RBC DIS.WIDTH-SD 39.8 % (39-53); RED BLOOD COUNT 3.05 M/uL (4.00-5.50); WHITE BLOOD COUNT 8.9 K/uL (4.1-10.2)
[2017-03-14 05:54] LABS: TROP-I INTERPRETATION POSITIVE; TROPONIN-I 1.16 ng/mL (0.0-0.30)
[2017-03-14 06:01] LABS: ALKALINE PHOSPHATASE 85 IU/L (3-129); ANION GAP 11 MEQ/L (2-14); CHLORIDE 91 MEQ/L (99-109); GFR ESTIMATE (CALCULATED) 7 mL/min/; GLUCOSE 141 mg/dL (70-99); POTASSIUM 4.7 MEQ/L (3.7-5.4); SAMPLE HEMOLYSIS CHECK 0; SAMPLE ICTERIC CHECK 0; SAMPLE LIPEMIA CHECK 0; SODIUM 132 MEQ/L (136-147); TOTAL BILIRUBIN 0.4 MG/DL (0.0-1.0); UREA NITROGEN (BUN) 47 mg/dL (9-23)
[2017-03-14 07:53] LABS: POINT-OF-CARE METER ID UU13113781
[2017-03-14 12:12] LABS: POINT-OF-CARE METER ID UU13113698
[2017-03-14 13:50] LABS: POINT-OF-CARE METER ID UU14174216
[2017-03-14 17:19] LABS: POINT-OF-CARE METER ID UU13113781
[2017-03-14 21:26] LABS: POINT-OF-CARE METER ID UU14174216
[2017-03-15 03:00] VITALS: BP 165/76
[2017-03-15 05:27] LABS: EOSINOPHIL (%) 2.6 % (0-5); EOSINOPHIL COUNT 0.3 K/uL (0-0.3); HEMATOCRIT 27.3 % (38.0-50.0); IMMATURE GRANULOCYTE (%) 0.3 % (0.0-0.7); INSTRUMENT ABS NEUTROPHIL CT 6.6 K/uL; LYMPHOCYTE COUNT 1.5 K/uL (1.0-2.8); MCH 28.6 PG (29.0-34.0); MCHC 33.7 G/DL (30.0-36.0); MCV 84.8 FL (86-99); MEAN PLAT.VOLUME 10.2 uM^3 (9.0-12.4); MONOCYTE (%) 11.4 % (3-12); MONOCYTE COUNT 1.1 K/uL (0-0.8); NEUTROPHIL (%) 69.7 % (45-76); NEUTROPHIL COUNT 6.6 K/uL (1.8-6.4); PLATELET COUNT 268 K/uL (156-360); RBC DIS.WIDTH-CV 12.7 % (11.8-14.6); RBC DIS.WIDTH-SD 39.3 % (39-53); RED BLOOD COUNT 3.22 M/uL (4.00-5.50); WHITE BLOOD COUNT 9.5 K/uL (4.1-10.2)
[2017-03-15 05:50] LABS: ANION GAP 12 MEQ/L (2-14); CHLORIDE 90 MEQ/L (99-109); GFR ESTIMATE (CALCULATED) 7 mL/min/; GLUCOSE 170 mg/dL (70-99); POTASSIUM 4.2 MEQ/L (3.7-5.4); SAMPLE HEMOLYSIS CHECK 0; SAMPLE ICTERIC CHECK 0; SAMPLE LIPEMIA CHECK 0; SODIUM 131 MEQ/L (136-147); UREA NITROGEN (BUN) 50 mg/dL (9-23)
[2017-03-15 07:38] LABS: POINT-OF-CARE METER ID UU14314088
[2017-03-15 08:17] VITALS: BP 146/71
[2017-03-15 12:11] VITALS: BP 139/67
[2017-03-15 12:12] LABS: POINT-OF-CARE METER ID UU13113781; POINT-OF-CARE USER ID ENVKC36
[2017-03-15 15:21] LABS: POINT-OF-CARE METER ID UU14107333
[2017-03-15 16:52] LABS: POINT-OF-CARE METER ID UU13113819
[2017-03-15 21:00] LABS: POINT-OF-CARE METER ID UU14314088
[2017-03-15 21:30] VITALS: BP 172/84
[2017-03-16 04:13] VITALS: BP 167/85
[2017-03-16 06:09] LABS: BASOPHIL COUNT 0.1 K/uL (0-0.1); EOSINOPHIL (%) 2.4 % (0-5); EOSINOPHIL COUNT 0.2 K/uL (0-0.3); HEMATOCRIT 29.2 % (38.0-50.0); IMMATURE GRANULOCYTE (%) 0.3 % (0.0-0.7); INSTRUMENT ABS NEUTROPHIL CT 6.6 K/uL; LYMPHOCYTE COUNT 1.3 K/uL (1.0-2.8); MCH 29.2 PG (29.0-34.0); MCHC 33.9 G/DL (30.0-36.0); MCV 86.1 FL (86-99); MEAN PLAT.VOLUME 10.2 uM^3 (9.0-12.4); MONOCYTE (%) 10.7 % (3-12); NEUTROPHIL (%) 72.4 % (45-76); NEUTROPHIL COUNT 6.6 K/uL (1.8-6.4); PLATELET COUNT 273 K/uL (156-360); RBC DIS.WIDTH-CV 12.6 % (11.8-14.6); RBC DIS.WIDTH-SD 39.5 % (39-53); RED BLOOD COUNT 3.39 M/uL (4.00-5.50); WHITE BLOOD COUNT 9.2 K/uL (4.1-10.2)
[2017-03-16 06:45] LABS: ANION GAP 17 MEQ/L (2-14); CHLORIDE 89 MEQ/L (99-109); GFR ESTIMATE (CALCULATED) 8 mL/min/; GLUCOSE 249 mg/dL (70-99); POTASSIUM 4.5 MEQ/L (3.7-5.4); SAMPLE HEMOLYSIS CHECK 0; SAMPLE ICTERIC CHECK 0; SAMPLE LIPEMIA CHECK 0; SODIUM 131 MEQ/L (136-147); TOTAL BILIRUBIN 0.4 MG/DL (0.0-1.0); UREA NITROGEN (BUN) 54 mg/dL (9-23)
[2017-03-16 07:00] LABS: ALKALINE PHOSPHATASE 115 IU/L (3-129)
[2017-03-16 07:36] LABS: POINT-OF-CARE METER ID UU13113698
[2017-03-16 07:59] VITALS: BP 138/69
[2017-03-16 11:15] VITALS: BP 144/63
[2017-03-16 11:26] LABS: POINT-OF-CARE METER ID UU13113698
[2017-03-16 11:50] LABS: POINT-OF-CARE METER ID UU13113698
[2017-03-16 16:30] LABS: POINT-OF-CARE METER ID UU14174216
[2017-03-16 16:36] VITALS: BP 132/64
[2017-03-16 21:24] LABS: POINT-OF-CARE METER ID UU13113698
[2017-03-16 21:30] VITALS: BP 154/78
[2017-03-17 06:16] LABS: BASOPHIL COUNT 0.1 K/uL (0-0.1); EOSINOPHIL (%) 4.8 % (0-5); EOSINOPHIL COUNT 0.4 K/uL (0-0.3); HEMATOCRIT 27.9 % (38.0-50.0); IMMATURE GRANULOCYTE (%) 0.5 % (0.0-0.7); LYMPHOCYTE COUNT 1.7 K/uL (1.0-2.8); MCHC 34.1 G/DL (30.0-36.0); MCV 85.1 FL (86-99); MONOCYTE (%) 9.8 % (3-12); MONOCYTE COUNT 0.8 K/uL (0-0.8); NEUTROPHIL (%) 63.2 % (45-76); PLATELET COUNT 257 K/uL (156-360); RBC DIS.WIDTH-CV 12.2 % (11.8-14.6); RBC DIS.WIDTH-SD 37.5 % (39-53); RED BLOOD COUNT 3.28 M/uL (4.00-5.50); WHITE BLOOD COUNT 7.9 K/uL (4.1-10.2)
[2017-03-17 06:38] LABS: ALKALINE PHOSPHATASE 94 IU/L (3-129); ANION GAP 11 MEQ/L (2-14); CHLORIDE 88 MEQ/L (99-109); GFR ESTIMATE (CALCULATED) 8 mL/min/ (58.99-99999); GLUCOSE 185 mg/dL (70-99); POTASSIUM 4.5 MEQ/L (3.7-5.4); SAMPLE HEMOLYSIS CHECK 0; SAMPLE ICTERIC CHECK 0; SAMPLE LIPEMIA CHECK 0; SODIUM 128 MEQ/L (136-147); TOTAL BILIRUBIN 0.3 MG/DL (0.0-1.0); UREA NITROGEN (BUN) 54 mg/dL (9-23)
[2017-03-17 08:25] LABS: POINT-OF-CARE METER ID UU13113781; POINT-OF-CARE USER ID NUTSLF44
[2017-03-17 11:12] VITALS: BP 143/68
[2017-03-17 12:54] LABS: POINT-OF-CARE METER ID UU13113781; POINT-OF-CARE USER ID NUTSLF44
[2017-03-17] MEDS ORDERED: PANTOPRAZOLE SO40 MG PO (13:06)
[2017-03-17] MEDS ORDERED: REGLAN5 MG PO (13:07)
[2017-03-17] MEDS ORDERED: ENDOCET 5-3251 EACH PO (13:11)
[2017-03-17 13:46] VITALS: BP 168/80
== END 2017-03-17 17:37 | disposition home or self-care (01) | DRG 444 ==
LOC: EME 18:48 → 4EAST 22:02 → EDOF 22:02 → ENRESERV 22:03 → 4EAST 03-13 01:57
PROVIDERS: Emergency Medicine; Hospitalist; Internal Medicine; Internal Medicine Cardiovascular Disease; Internal Medicine Nephrology
PROC: 30233N1 Transfusion of Nonautologous Red Blood Cells into Peripheral Vein, Percutaneous Approach (ICD-10-PCS; 2017-03-12)
PROC: 0DB68ZX Excision of Stomach, Via Natural or Artificial Opening Endoscopic, Diagnostic (ICD-10-PCS; principal; 2017-03-15)
DX: K80.20 Calculus of gallbladder without cholecystitis without obstruction (principal); I12.0 Hypertensive chronic kidney disease with stage 5 chronic kidney disease or end stage renal disease; E11.43 Type 2 diabetes mellitus with diabetic autonomic (poly)neuropathy; K31.84 Gastroparesis; R62.7 Adult failure to thrive; Z66 Do not resuscitate; I27.20 Pulmonary hypertension, unspecified; E87.1 Hypo-osmolality and hyponatremia; E11.22 Type 2 diabetes mellitus with diabetic chronic kidney disease; R63.4 Abnormal weight loss; I25.10 Atherosclerotic heart disease of native coronary artery without angina pectoris; G89.29 Other chronic pain; E11.319 Type 2 diabetes mellitus with unspecified diabetic retinopathy without macular edema; E11.21 Type 2 diabetes mellitus with diabetic nephropathy; E78.5 Hyperlipidemia, unspecified; E66.9 Obesity, unspecified; I44.0 Atrioventricular block, first degree; H54.8 Legal blindness, as defined in USA; D63.1 Anemia in chronic kidney disease; R18.8 Other ascites; I87.8 Other specified disorders of veins; N18.6 End stage renal disease; M19.90 Unspecified osteoarthritis, unspecified site; K21.9 Gastro-esophageal reflux disease without esophagitis; K25.9 Gastric ulcer, unspecified as acute or chronic, without hemorrhage or perforation; K82.8 Other specified diseases of gallbladder; I25.2 Old myocardial infarction; Z88.0 Allergy status to penicillin; Z68.34 Body mass index [BMI] 34.0-34.9, adult; Z91.013 Allergy to seafood; Z95.5 Presence of coronary angioplasty implant and graft; Z79.4 Long term (current) use of insulin; Z79.82 Long term (current) use of aspirin; Z79.899 Other long term (current) drug therapy; Z87.11 Personal history of peptic ulcer disease; Z91.19 Patient's noncompliance with other medical treatment and regimen; Z99.2 Dependence on renal dialysis
CPT/HCPCS: 72148; 76705; 80048; 80053; 81003; 82948; 83690; 84484; 85025; 85027; 86850; 86900; 86901; 86920; 87070; 87205; 88305; 88342 TC; 89051; 93005; 99281; 99285; J0881; J1644; J1815; J2270; J2405; J2765; J7030; P9016

== ENCOUNTER 2017-04-14 10:20 | Inpatient (IN) | payer OTHER, BC ==
[~2017-04-14] VITALS: Ht 177.8 cm; Wt 96.0 kg
[~2017-04-14 10:20] MED LIST changes: +ONDANSETRON HCL4 MG PO; +REGLAN5 MG PO; +SENSIPAR60 MG PO
[2017-04-14 11:21] LABS: HEMATOCRIT 24.1 % (38.0-50.0); HEMOGLOBIN 8.5 G/DL (12.5-16.6); MCH 29.6 PG (29.0-34.0); MCHC 35.3 G/DL (30.0-36.0); PLATELET COUNT 196 K/uL (156-360); RBC DIS.WIDTH-CV 12.8 % (11.8-14.6); RBC DIS.WIDTH-SD 39.3 % (39-53); RED BLOOD COUNT 2.87 M/uL (4.00-5.50); WHITE BLOOD COUNT 14.3 K/uL (4.1-10.2)
[2017-04-14 11:32] LABS: CHLORIDE 92 mEq/L (99-109); POTASSIUM 5.4 mEq/L (3.7-5.4); SODIUM 131 mEq/L (136-147)
[2017-04-14 11:34] LABS: GLUCOSE 190 mg/dL (70-99)
[2017-04-14 11:38] LABS: CREATININE 8.2 mg/dL (0.6-1.3); GFR ESTIMATE (CALCULATED) 7 mL/min/ (58.99-99999)
[2017-04-14 11:39] LABS: UREA NITROGEN (BUN) 65 mg/dL (9-23)
[2017-04-14 11:40] LABS: TROP-I INTERPRETATION NEGATIVE; TROPONIN-I 0.15 ng/mL (0.0-0.30)
[2017-04-14 13:49] LABS: PERITONEAL LAVAGE WBC <200
[2017-04-14 13:51] LABS: PERITONEAL LAVAGE APPEARANCE CLEAR; PERITONEAL LAVAGE COLOR COLORLESS
[2017-04-14 14:29] LABS: ALBUMIN 2.8 g/dL (3.2-4.8)
[2017-04-14 14:32] LABS: TOTAL PROTEIN 5.9 g/dL (6.4-8.3)
[2017-04-14 14:34] LABS: TOTAL BILIRUBIN 0.5 mg/dL (0.0-1.0)
[2017-04-14 14:35] LABS: ALKALINE PHOSPHATASE 150 IU/L (3-129)
[2017-04-14 14:37] LABS: AST (GOT) 7 IU/L (2-34); DIRECT BILIRUBIN 0.2 mg/dL (0.0-0.3)
[2017-04-14 14:38] LABS: ALT (GPT) 7 IU/L (3-49)
[2017-04-14] MEDS ORDERED: PERCOCET 5/31 TABLET PO (17:02)
[2017-04-14] MEDS ORDERED: PROTONIX40 MG PO (17:03)
[2017-04-14] MEDS ORDERED: MIRALAX17 GM PO (17:04)
[2017-04-14] MEDS ORDERED: GENTAMICIN SULF30 GM TP (17:05)
[2017-04-14] MEDS ORDERED: IMDUR30 MG PO (17:05)
[2017-04-14] MEDS ORDERED: VISINE DRY EYE15 ML BOTH EYES (17:05)
[2017-04-14 18:06] LABS: TROP-I INTERPRETATION INDETERMINATE; TROPONIN-I 0.34 ng/mL (0.0-0.30)
[2017-04-14 23:21] LABS: TROP-I INTERPRETATION INDETERMINATE
[2017-04-15] VITALS (15 sets, daily range): BP systolic 109–173; BP diastolic 56–94
[2017-04-15 06:32] LABS: HEMATOCRIT 21.2 % (38.0-50.0); HEMOGLOBIN 7.2 G/DL (12.5-16.6); MCV 85.5 FL (86-99); PLATELET COUNT 186 K/uL (156-360); RBC DIS.WIDTH-CV 13.2 % (11.8-14.6); RBC DIS.WIDTH-SD 40.5 % (39-53); RED BLOOD COUNT 2.48 M/uL (4.00-5.50); WHITE BLOOD COUNT 7.3 K/uL (4.1-10.2)
[2017-04-15 07:08] LABS: ALBUMIN 2.5 G/DL (3.2-4.8); ALKALINE PHOSPHATASE 101 IU/L (3-129); ALT (GPT) 6 IU/L (3-49); AST (GOT) < 7 IU/L (2-34); CHLORIDE 90 MEQ/L (99-109); CREATININE 7.8 MG/DL (0.6-1.3); GFR ESTIMATE (CALCULATED) 8 mL/min/ (58.99-99999); GLUCOSE 273 mg/dL (70-99); POTASSIUM 4.8 MEQ/L (3.7-5.4); SODIUM 130 MEQ/L (136-147); TOTAL BILIRUBIN 0.4 MG/DL (0.0-1.0); TOTAL PROTEIN 5.7 G/DL (6.4-8.3); UREA NITROGEN (BUN) 60 mg/dL (9-23)
[2017-04-15 10:14] LABS: TROP-I INTERPRETATION INDETERMINATE; TROPONIN-I 0.58 ng/mL (0.0-0.30)
[2017-04-15 13:46] LABS: TROP-I INTERPRETATION POSITIVE
[2017-04-16 03:30] VITALS: BP 169/85
[2017-04-16 08:26] VITALS: BP 167/88
[2017-04-16 09:19] LABS: BASOPHIL (%) 0.5 % (0-1); EOSINOPHIL (%) 4.8 % (0-5); EOSINOPHIL COUNT 0.4 K/uL (0-0.3); HEMATOCRIT 26.4 % (38.0-50.0); HEMOGLOBIN 8.8 G/DL (12.5-16.6); IMMATURE GRANULOCYTE (%) 0.4 % (0.0-0.7); LYMPHOCYTE (%) 20.5 % (15-42); LYMPHOCYTE COUNT 1.7 K/uL (1.0-2.8); MCH 26.7 PG (29.0-34.0); MCHC 33.3 G/DL (30.0-36.0); MONOCYTE (%) 8.4 % (3-12); MONOCYTE COUNT 0.7 K/uL (0-0.8); NEUTROPHIL (%) 65.4 % (45-76); NEUTROPHIL COUNT 5.3 K/uL (1.8-6.4); PLATELET COUNT 177 K/uL (156-360); RBC DIS.WIDTH-CV 16.1 % (11.8-14.6); RBC DIS.WIDTH-SD 46.3 % (39-53); WHITE BLOOD COUNT 8.1 K/uL (4.1-10.2)
[2017-04-16 09:39] LABS: CHLORIDE 90 MEQ/L (99-109); GFR ESTIMATE (CALCULATED) 9 mL/min/ (58.99-99999); GLUCOSE 216 mg/dL (70-99); IRON 166 MCG/DL (35-150); SODIUM 131 MEQ/L (136-147); TRANSFERRIN (TIBC) 133.2 mg/dL (215-380); UREA NITROGEN (BUN) 51 mg/dL (9-23)
[2017-04-16 09:41] LABS: TRANSFERRIN SATUR. 125 % (20-55)
[2017-04-16 11:31] VITALS: BP 124/58
[2017-04-16 15:12] VITALS: BP 142/82
[2017-04-16 20:00] VITALS: BP 161/84
[2017-04-16 23:55] VITALS: BP 137/60
[2017-04-17 04:15] VITALS: BP 166/84
[2017-04-17 06:49] LABS: HEMATOCRIT 27.9 % (38.0-50.0); HEMOGLOBIN 9.8 G/DL (12.5-16.6); MCH 27.8 PG (29.0-34.0); MCHC 35.1 G/DL (30.0-36.0); MCV 79.3 FL (86-99); PLATELET COUNT 193 K/uL (156-360); RBC DIS.WIDTH-CV 15.9 % (11.8-14.6); RBC DIS.WIDTH-SD 45.1 % (39-53); RED BLOOD COUNT 3.52 M/uL (4.00-5.50); WHITE BLOOD COUNT 6.3 K/uL (4.1-10.2)
[2017-04-17 07:25] LABS: CHLORIDE 85 MEQ/L (99-109); CREATININE 6.5 MG/DL (0.6-1.3); GFR ESTIMATE (CALCULATED) 9 mL/min/ (58.99-99999); POTASSIUM 4.4 MEQ/L (3.7-5.4); UREA NITROGEN (BUN) 52 mg/dL (9-23)
[2017-04-17 07:30] LABS: GLUCOSE 412 mg/dL (70-99); SODIUM 124 MEQ/L (136-147)
[2017-04-17 08:00] VITALS: BP 160/78
[2017-04-17 11:59] VITALS: BP 136/76
[2017-04-17 19:36] VITALS: BP 165/86
[2017-04-18 00:43] VITALS: BP 177/96
[2017-04-18 04:40] VITALS: BP 178/97
[2017-04-18 07:18] VITALS: BP 160/89
[2017-04-18 11:39] VITALS: BP 17/101
[2017-04-18] MEDS ORDERED: ZOFRAN ODT4 MG PO (13:39)
[2017-04-18] MEDS ORDERED: BYSTOLIC10 MG PO (13:41)
[2017-04-18] MEDS ORDERED: ROXICODONE5 MG PO (13:41)
[2017-04-18 15:32] VITALS: BP 169/93
[2017-04-18] MEDS ORDERED: IMDUR30 MG PO (16:28)
== END 2017-04-18 17:13 | disposition home health service (06) | DRG 280 ==
LOC: EME 10:20 → EDOF 13:07 → ENRESERV 13:18 → EDOF 14:04 → ENRESERV 17:05 → 4EAST 04-15 00:01 → ENPENDDIS 04-18 → 4EAST 04-18 17:13
PROVIDERS: Emergency Medicine; Internal Medicine; Internal Medicine Cardiovascular Disease; Physician Assistant
PROC: 3E1M39Z Irrigation of Peritoneal Cavity using Dialysate, Percutaneous Approach (ICD-10-PCS; 2017-04-15)
PROC: B2151ZZ Fluoroscopy of Left Heart using Low Osmolar Contrast (ICD-10-PCS; principal; 2017-04-17)
PROC: B2111ZZ Fluoroscopy of Multiple Coronary Arteries using Low Osmolar Contrast (ICD-10-PCS; principal; 2017-04-17)
PROC: 4A023N7 Measurement of Cardiac Sampling and Pressure, Left Heart, Percutaneous Approach (ICD-10-PCS; principal; 2017-04-17)
DX: I21.4 Non-ST elevation (NSTEMI) myocardial infarction (principal); I25.110 Atherosclerotic heart disease of native coronary artery with unstable angina pectoris; R65.10 Systemic inflammatory response syndrome (SIRS) of non-infectious origin without acute organ dysfunction; E87.2 Acidosis; I12.0 Hypertensive chronic kidney disease with stage 5 chronic kidney disease or end stage renal disease; E11.22 Type 2 diabetes mellitus with diabetic chronic kidney disease; N18.6 End stage renal disease; E87.1 Hypo-osmolality and hyponatremia; E87.70 Fluid overload, unspecified; J90 Pleural effusion, not elsewhere classified; D63.1 Anemia in chronic kidney disease; I27.20 Pulmonary hypertension, unspecified; E11.21 Type 2 diabetes mellitus with diabetic nephropathy; E11.319 Type 2 diabetes mellitus with unspecified diabetic retinopathy without macular edema; E11.40 Type 2 diabetes mellitus with diabetic neuropathy, unspecified; E11.65 Type 2 diabetes mellitus with hyperglycemia; K80.20 Calculus of gallbladder without cholecystitis without obstruction; E78.5 Hyperlipidemia, unspecified; F32.9 Major depressive disorder, single episode, unspecified; G43.909 Migraine, unspecified, not intractable, without status migrainosus; M54.2 Cervicalgia; H54.8 Legal blindness, as defined in USA; K21.9 Gastro-esophageal reflux disease without esophagitis; Z66 Do not resuscitate; I25.2 Old myocardial infarction; Z99.2 Dependence on renal dialysis; Z79.4 Long term (current) use of insulin; Z79.82 Long term (current) use of aspirin; Z95.5 Presence of coronary angioplasty implant and graft
CPT/HCPCS: 71045; 74176; 80048; 80053; 80076; 82948; 83540; 83605; 83615 91; 84157; 84466; 84484; 85025; 85027; 85730; 86850; 86860; 86870; 86880; 86900; 86901; 86905; 86920; 87040; 87070; 87205; 89051; 93005; 93306; 99281; 99285; C1769; C1887; G0378; J0360; J0881; J1200; J1626; J1644; J1815; J1956; J2250; J2270; J2405; J2930; J3010; J7512; P9016; S0028; S0030

== ENCOUNTER 2017-04-20 14:32 | Inpatient (IN) | payer OTHER, BC ==
[~2017-04-20] VITALS: Ht 175.3 cm; Wt 97.9 kg
[~2017-04-20 14:32] MED LIST changes: +BYSTOLIC10 MG PO; +MIRALAX17 GM PO; +PROTONIX40 MG PO; +ROXICODONE5 MG PO; +VISINE DRY EYE15 ML BOTH EYES; +ZOFRAN ODT4 MG PO
[2017-04-20 17:19] LABS: BASOPHIL (%) 0 % (0-1); EOSINOPHIL (%) 0.9 % (0-5); EOSINOPHIL COUNT 0.1 K/uL (0-0.3); HEMATOCRIT 29.4 % (38.0-50.0); HEMOGLOBIN 10.3 G/DL (12.5-16.6); IMMATURE GRANULOCYTE (%) 0.7 % (0.0-0.7); LYMPHOCYTE (%) 15.5 % (15-42); LYMPHOCYTE COUNT 1.8 K/uL (1.0-2.8); MCH 27.8 PG (29.0-34.0); MCV 79.2 FL (86-99); MONOCYTE COUNT 1.2 K/uL (0-0.8); NEUTROPHIL (%) 72.9 % (45-76); NEUTROPHIL COUNT 8.7 K/uL (1.8-6.4); PLATELET COUNT 207 K/uL (156-360); RBC DIS.WIDTH-CV 16.1 % (11.8-14.6); RBC DIS.WIDTH-SD 45.1 % (39-53); RED BLOOD COUNT 3.71 M/uL (4.00-5.50); WHITE BLOOD COUNT 11.9 K/uL (4.1-10.2)
[2017-04-20 17:27] LABS: ALBUMIN 2.7 g/dL (3.2-4.8); CHLORIDE 90 mEq/L (99-109); POTASSIUM 3.8 mEq/L (3.7-5.4); SODIUM 128 mEq/L (136-147)
[2017-04-20 17:30] LABS: GLUCOSE 122 mg/dL (70-99); TOTAL PROTEIN 5.3 g/dL (6.4-8.3)
[2017-04-20 17:32] LABS: TOTAL BILIRUBIN 0.4 mg/dL (0.0-1.0)
[2017-04-20 17:33] LABS: CREATININE 6.9 mg/dL (0.6-1.3); GFR ESTIMATE (CALCULATED) 9 mL/min/ (58.99-99999)
[2017-04-20 17:34] LABS: UREA NITROGEN (BUN) 60 mg/dL (9-23)
[2017-04-20 17:35] LABS: AST (GOT) 10 IU/L (2-34)
[2017-04-20 17:36] LABS: ALT (GPT) 9 IU/L (3-49)
[2017-04-20 17:40] LABS: ALKALINE PHOSPHATASE 95 IU/L (3-129); TROP-I INTERPRETATION NEGATIVE; TROPONIN-I 0.18 ng/mL (0.0-0.30)
[2017-04-20 17:41] LABS: HEMOGLOBIN A1c (GLYCOHEMOGLOB) 7.5 % HGB (Below 5.7)
[2017-04-20 18:09] LABS: HDL CHOLESTEROL 35 MG/DL (Desirable>=40); LDL CHOLESTEROL 70 mg/dL (Desirable<100); NON-HDL CHOLESTEROL 122 mg/dL (Desirable<160); TOTAL CHOLESTEROL 157 mg/dL (Desirable<200); TRIGLYCERIDES 262 MG/DL (Normal: <150)
[2017-04-20 23:01] VITALS: BP 189/91
[2017-04-21 02:10] VITALS: BP 184/90
[2017-04-21 03:56] VITALS: BP 185/90
[2017-04-21 05:56] LABS: HEMATOCRIT 30.6 % (38.0-50.0); HEMOGLOBIN 10.6 G/DL (12.5-16.6); MCHC 34.6 G/DL (30.0-36.0); PLATELET COUNT 215 K/uL (156-360); RBC DIS.WIDTH-CV 16.2 % (11.8-14.6); RBC DIS.WIDTH-SD 45.9 % (39-53); RED BLOOD COUNT 3.78 M/uL (4.00-5.50); WHITE BLOOD COUNT 10.8 K/uL (4.1-10.2)
[2017-04-21 06:09] LABS: STOOL OCCULT BLD 1ST SPECIMEN NEGATIVE
[2017-04-21 06:27] LABS: ALBUMIN 2.6 G/DL (3.2-4.8); CHLORIDE 86 MEQ/L (99-109); CREATININE 7.1 MG/DL (0.6-1.3); GFR ESTIMATE (CALCULATED) 8 mL/min/ (58.99-99999); GLUCOSE 271 mg/dL (70-99); POTASSIUM 4.1 MEQ/L (3.7-5.4); SODIUM 128 MEQ/L (136-147); UREA NITROGEN (BUN) 63 mg/dL (9-23)
[2017-04-21 06:50] LABS: C DIFF TOXIN NEGATIVE (NEGATIVE)
[2017-04-21 07:28] VITALS: BP 188/91
[2017-04-21 11:05] VITALS: BP 165/86
[2017-04-21 20:00] VITALS: BP 186/98
[2017-04-21 23:55] VITALS: BP 177/97
[2017-04-22] VITALS (15 sets, daily range): BP systolic 108–191; BP diastolic 57–90
[2017-04-22 06:09] LABS: BASOPHIL (%) 0.1 % (0-1); EOSINOPHIL COUNT 0.3 K/uL (0-0.3); HEMATOCRIT 28.7 % (38.0-50.0); HEMOGLOBIN 9.8 G/DL (12.5-16.6); IMMATURE GRANULOCYTE (%) 1.4 % (0.0-0.7); LYMPHOCYTE (%) 16.7 % (15-42); LYMPHOCYTE COUNT 1.6 K/uL (1.0-2.8); MCH 27.6 PG (29.0-34.0); MCHC 34.1 G/DL (30.0-36.0); MCV 80.8 FL (86-99); MONOCYTE (%) 9.7 % (3-12); MONOCYTE COUNT 0.9 K/uL (0-0.8); NEUTROPHIL (%) 69.1 % (45-76); NEUTROPHIL COUNT 6.6 K/uL (1.8-6.4); RBC DIS.WIDTH-CV 16.2 % (11.8-14.6); RBC DIS.WIDTH-SD 46.6 % (39-53); RED BLOOD COUNT 3.55 M/uL (4.00-5.50); WHITE BLOOD COUNT 9.6 K/uL (4.1-10.2)
[2017-04-22 06:29] LABS: CHLORIDE 90 MEQ/L (99-109); CREATININE 6.9 MG/DL (0.6-1.3); GFR ESTIMATE (CALCULATED) 9 mL/min/ (58.99-99999); GLUCOSE 167 mg/dL (70-99); POTASSIUM 3.7 MEQ/L (3.7-5.4); SODIUM 128 MEQ/L (136-147); UREA NITROGEN (BUN) 60 mg/dL (9-23)
[2017-04-22 06:54] LABS: PLAT.SUFFICIENCY ADEQUATE; PLATELET COUNT 197 K/uL (156-360)
[2017-04-22 21:03] LABS: TYPE OF FLUID PD FLUID
[2017-04-22 21:35] LABS: BODY FLUID RBC'S 1 /MM^3 (0-100); BODY FLUID WBC'S 4 /MM^3 (0-500)
[2017-04-22 21:50] LABS: BODY FLUID EOSINOPHILS 0 % (0-25); MONONUCLEAR WBC'S 19 %; POLYNUCLEAR WBC'S 81 % (0-25)
[2017-04-23] VITALS (13 sets, daily range): BP systolic 89–195; BP diastolic 51–92
[2017-04-24 04:41] VITALS: BP 196/94
[2017-04-24 06:14] VITALS: BP 149/73
[2017-04-24 09:00] VITALS: BP 142/67
[2017-04-24 13:00] VITALS: BP 89/53
[2017-04-24 21:00] VITALS: BP 173/75
[2017-04-25 04:46] VITALS: BP 148/73
[2017-04-25 05:38] LABS: BASOPHIL (%) 0.1 % (0-1); EOSINOPHIL COUNT 0.2 K/uL (0-0.3); HEMATOCRIT 28.2 % (38.0-50.0); HEMOGLOBIN 9.8 G/DL (12.5-16.6); IMMATURE GRANULOCYTE (%) 2.4 % (0.0-0.7); LYMPHOCYTE COUNT 1.8 K/uL (1.0-2.8); MCH 28.4 PG (29.0-34.0); MCHC 34.8 G/DL (30.0-36.0); MCV 81.7 FL (86-99); MONOCYTE (%) 11.7 % (3-12); MONOCYTE COUNT 1.3 K/uL (0-0.8); NEUTROPHIL (%) 66.8 % (45-76); NEUTROPHIL COUNT 7.2 K/uL (1.8-6.4); PLATELET COUNT 168 K/uL (156-360); RBC DIS.WIDTH-CV 17.7 % (11.8-14.6); RBC DIS.WIDTH-SD 47.3 % (39-53); RED BLOOD COUNT 3.45 M/uL (4.00-5.50); WHITE BLOOD COUNT 10.8 K/uL (4.1-10.2)
[2017-04-25 06:05] LABS: CHLORIDE 88 MEQ/L (99-109); CREATININE 6.3 MG/DL (0.6-1.3); GFR ESTIMATE (CALCULATED) 10 mL/min/ (58.99-99999); GLUCOSE 123 mg/dL (70-99); POTASSIUM 3.7 MEQ/L (3.7-5.4); SODIUM 126 MEQ/L (136-147); UREA NITROGEN (BUN) 45 mg/dL (9-23)
[2017-04-25] MEDS ORDERED: APRESOLINE25 MG PO (12:14)
[2017-04-25] MEDS ORDERED: CLONIDINE1 EACH TD (12:15)
[2017-04-25 15:10] VITALS: BP 100/59
[2017-04-25 15:15] VITALS: BP 108/55
== END 2017-04-25 16:39 | disposition home health service (06) | DRG 69 ==
LOC: EME 14:32 → 4EAST 21:04 → EDOF 21:04 → ENRESERV 21:11 → 5WEST 22:42 → ENRESERV 04-21 00:15 → 4EAST 04-21 01:56
PROVIDERS: Emergency Medicine; Internal Medicine; Internal Medicine Nephrology
PROC: 3E1M39Z Irrigation of Peritoneal Cavity using Dialysate, Percutaneous Approach (ICD-10-PCS; principal; 2017-04-21)
DX: G45.9 Transient cerebral ischemic attack, unspecified (principal); I21.4 Non-ST elevation (NSTEMI) myocardial infarction; G45.3 Amaurosis fugax; N18.6 End stage renal disease; I12.0 Hypertensive chronic kidney disease with stage 5 chronic kidney disease or end stage renal disease; E11.22 Type 2 diabetes mellitus with diabetic chronic kidney disease; E11.649 Type 2 diabetes mellitus with hypoglycemia without coma; E11.65 Type 2 diabetes mellitus with hyperglycemia; I25.10 Atherosclerotic heart disease of native coronary artery without angina pectoris; E78.5 Hyperlipidemia, unspecified; E87.1 Hypo-osmolality and hyponatremia; Z66 Do not resuscitate; E11.319 Type 2 diabetes mellitus with unspecified diabetic retinopathy without macular edema; Z99.2 Dependence on renal dialysis; Z98.61 Coronary angioplasty status; H35.60 Retinal hemorrhage, unspecified eye; E87.70 Fluid overload, unspecified; K21.9 Gastro-esophageal reflux disease without esophagitis; Z79.02 Long term (current) use of antithrombotics/antiplatelets; Z79.4 Long term (current) use of insulin; D64.9 Anemia, unspecified; I27.20 Pulmonary hypertension, unspecified; I08.1 Rheumatic disorders of both mitral and tricuspid valves
CPT/HCPCS: 70450; 70547; 70551; 71046; 80048; 80053; 80061; 80069; 81003; 82272; 82948; 83036; 84484; 85025; 85027; 87070; 87205; 87493; 89051; 93005; 93306; 93880; 99281; 99285; G0378; J0360; J1644; J1815; J2405

== ENCOUNTER 2017-05-14 23:41 | Inpatient (IN) | payer OTHER, BC ==
[~2017-05-14] VITALS: Ht 175.3 cm; Wt 92.9 kg
[~2017-05-14 23:41] MED LIST changes: +APRESOLINE25 MG PO; +CLONIDINE1 EACH TD
[2017-05-15 00:18] LABS: HEMATOCRIT 28.9 % (38.0-50.0); HEMOGLOBIN 9.9 G/DL (12.5-16.6); MCH 28.4 PG (29.0-34.0); MCHC 34.3 G/DL (30.0-36.0); MCV 82.8 FL (86-99); RBC DIS.WIDTH-CV 16.6 % (11.8-14.6); RBC DIS.WIDTH-SD 50.2 % (39-53); RED BLOOD COUNT 3.49 M/uL (4.00-5.50); WHITE BLOOD COUNT 6.9 K/uL (4.1-10.2)
[2017-05-15 00:22] LABS: PLATELET COUNT 307 K/uL (156-360)
[2017-05-15 00:28] LABS: CHLORIDE 90 mEq/L (99-109); POTASSIUM 3.3 mEq/L (3.7-5.4); SODIUM 131 mEq/L (136-147)
[2017-05-15 00:34] LABS: CREATININE 7.3 mg/dL (0.6-1.3); GFR ESTIMATE (CALCULATED) 8 mL/min/ (58.99-99999)
[2017-05-15 00:35] LABS: UREA NITROGEN (BUN) 48 mg/dL (9-23)
[2017-05-15 00:37] LABS: GLUCOSE 432 mg/dL (70-99)
[2017-05-15 00:39] LABS: TROP-I INTERPRETATION POSITIVE
[2017-05-15 00:40] LABS: TROPONIN-I 1.86 ng/mL (0.0-0.30)
[2017-05-15 01:10] LABS: INTER. NORMALIZED RATIO 1.2
[2017-05-15 01:18] LABS: PTT 31.4 SEC (25-37)
[2017-05-15] MEDS ORDERED: CLONIDINE1 EACH TD (01:29)
[2017-05-15] MEDS ORDERED: TYLENOL WITH C1 EACH PO (01:31)
[2017-05-15] MEDS ORDERED: CLEOCIN300 MG PO (01:32)
[2017-05-15 02:30] VITALS: BP 163/81
[2017-05-15 04:54] LABS: HEMATOCRIT 26.2 % (38.0-50.0); HEMOGLOBIN 9.1 G/DL (12.5-16.6); MCH 28.6 PG (29.0-34.0); MCHC 34.7 G/DL (30.0-36.0); MCV 82.4 FL (86-99); PLATELET COUNT 278 K/uL (156-360); RBC DIS.WIDTH-CV 16.4 % (11.8-14.6); RBC DIS.WIDTH-SD 49.1 % (39-53); RED BLOOD COUNT 3.18 M/uL (4.00-5.50)
[2017-05-15 05:11] LABS: TROP-I INTERPRETATION POSITIVE
[2017-05-15 05:18] LABS: ALBUMIN 2.6 g/dL (3.2-4.8); CHLORIDE 91 mEq/L (99-109); POTASSIUM 3.1 mEq/L (3.7-5.4); SODIUM 132 mEq/L (136-147); TROPONIN-I 1.48 ng/mL (0.0-0.30)
[2017-05-15 05:21] LABS: GLUCOSE 347 mg/dL (70-99); TOTAL PROTEIN 4.7 g/dL (6.4-8.3)
[2017-05-15 05:23] LABS: TOTAL BILIRUBIN 0.4 mg/dL (0.0-1.0)
[2017-05-15 05:24] LABS: ALKALINE PHOSPHATASE 117 IU/L (3-129); CREATININE 7.7 mg/dL (0.6-1.3); GFR ESTIMATE (CALCULATED) 8 mL/min/ (58.99-99999)
[2017-05-15 05:25] LABS: UREA NITROGEN (BUN) 47 mg/dL (9-23)
[2017-05-15 05:26] LABS: AST (GOT) 6 IU/L (2-34)
[2017-05-15 05:27] LABS: ALT (GPT) 6 IU/L (3-49)
[2017-05-15 08:30] VITALS: BP 152/78
[2017-05-15 10:29] LABS: TYPE OF FLUID PD FLUID
[2017-05-15 11:15] LABS: APPEARANCE CLEAR-COLORLESS; BODY FLUID RBC'S 3 /MM^3 (0-100); BODY FLUID WBC'S 14 /MM^3 (0-500)
[2017-05-15 11:29] LABS: BODY FLUID EOSINOPHILS 0 % (0-25); MONONUCLEAR WBC'S 100 %; POLYNUCLEAR WBC'S 0 % (0-25)
[2017-05-15 11:47] LABS: TROP-I INTERPRETATION POSITIVE; TROPONIN-I 1.82 ng/mL (0.0-0.30)
[2017-05-15 13:00] VITALS: BP 148/70
[2017-05-15 17:27] LABS: TROP-I INTERPRETATION POSITIVE; TROPONIN-I 1.79 ng/mL (0.0-0.30)
[2017-05-15 23:35] VITALS: BP 129/67
[2017-05-16] VITALS (8 sets, daily range): BP systolic 116–132; BP diastolic 55–71
[2017-05-16 06:05] LABS: BASOPHIL (%) 0.4 % (0-1); EOSINOPHIL (%) 2.5 % (0-5); EOSINOPHIL COUNT 0.1 K/uL (0-0.3); HEMATOCRIT 26.2 % (38.0-50.0); HEMOGLOBIN 8.8 G/DL (12.5-16.6); IMMATURE GRANULOCYTE (%) 0.6 % (0.0-0.7); LYMPHOCYTE (%) 12.5 % (15-42); LYMPHOCYTE COUNT 0.7 K/uL (1.0-2.8); MCH 28.2 PG (29.0-34.0); MCHC 33.6 G/DL (30.0-36.0); MONOCYTE COUNT 0.7 K/uL (0-0.8); NEUTROPHIL COUNT 3.7 K/uL (1.8-6.4); PLATELET COUNT 218 K/uL (156-360); RBC DIS.WIDTH-CV 16.9 % (11.8-14.6); RBC DIS.WIDTH-SD 52.4 % (39-53); RED BLOOD COUNT 3.12 M/uL (4.00-5.50); WHITE BLOOD COUNT 5.2 K/uL (4.1-10.2)
[2017-05-16 06:30] LABS: TROP-I INTERPRETATION POSITIVE
[2017-05-16 06:53] LABS: CHLORIDE 92 MEQ/L (99-109); CREATININE 7.5 MG/DL (0.6-1.3); GFR ESTIMATE (CALCULATED) 8 mL/min/ (58.99-99999); GLUCOSE 243 mg/dL (70-99); POTASSIUM 3.3 MEQ/L (3.7-5.4); SODIUM 133 MEQ/L (136-147); UREA NITROGEN (BUN) 43 mg/dL (9-23)
[2017-05-17 04:45] VITALS: BP 125/63
[2017-05-17 06:45] LABS: BASOPHIL (%) 0.1 % (0-1); EOSINOPHIL (%) 0 % (0-5); HEMATOCRIT 27.7 % (38.0-50.0); HEMOGLOBIN 9.1 G/DL (12.5-16.6); IMMATURE GRANULOCYTE (%) 0.5 % (0.0-0.7); LYMPHOCYTE (%) 4.8 % (15-42); LYMPHOCYTE COUNT 0.5 K/uL (1.0-2.8); MCH 27.9 PG (29.0-34.0); MCHC 32.9 G/DL (30.0-36.0); MONOCYTE (%) 6.7 % (3-12); MONOCYTE COUNT 0.7 K/uL (0-0.8); NEUTROPHIL (%) 87.9 % (45-76); NEUTROPHIL COUNT 8.6 K/uL (1.8-6.4); PLATELET COUNT 197 K/uL (156-360); RBC DIS.WIDTH-CV 16.9 % (11.8-14.6); RBC DIS.WIDTH-SD 53.1 % (39-53); RED BLOOD COUNT 3.26 M/uL (4.00-5.50); WHITE BLOOD COUNT 9.8 K/uL (4.1-10.2)
[2017-05-17 06:59] VITALS: BP 101/53
[2017-05-17 07:08] LABS: TROP-I INTERPRETATION POSITIVE
[2017-05-17 07:49] LABS: CHLORIDE 95 MEQ/L (99-109); CREATININE 7.4 MG/DL (0.6-1.3); GFR ESTIMATE (CALCULATED) 8 mL/min/ (58.99-99999); GLUCOSE 235 mg/dL (70-99); MAGNESIUM 1.3 mg/dl (1.3-2.7); PHOSPHORUS 4.8 mg/dL (2.5-4.9); POTASSIUM 3.6 MEQ/L (3.7-5.4); SODIUM 135 MEQ/L (136-147); UREA NITROGEN (BUN) 41 mg/dL (9-23)
[2017-05-17 08:59] VITALS: BP 114/67
[2017-05-17 12:57] VITALS: BP 91/50
[2017-05-17 16:38] VITALS: BP 104/54
[2017-05-17 17:48] LABS: TROP-I INTERPRETATION POSITIVE; TROPONIN-I 14.92 ng/mL (0.0-0.30)
[2017-05-17 21:09] VITALS: BP 122/69
[2017-05-18 00:30] VITALS: BP 124/71
[2017-05-18 05:45] VITALS: BP 119/67
[2017-05-18 06:57] LABS: HEMATOCRIT 27.3 % (38.0-50.0); MCH 28.3 PG (29.0-34.0); MCV 85.8 FL (86-99); PLATELET COUNT 182 K/uL (156-360); RBC DIS.WIDTH-CV 17.2 % (11.8-14.6); RBC DIS.WIDTH-SD 53.8 % (39-53); RED BLOOD COUNT 3.18 M/uL (4.00-5.50); WHITE BLOOD COUNT 12.8 K/uL (4.1-10.2)
[2017-05-18 07:18] LABS: TROP-I INTERPRETATION POSITIVE; TROPONIN-I 23.51 ng/mL (0.0-0.30)
[2017-05-18 08:34] LABS: CHLORIDE 94 MEQ/L (99-109); CREATININE 7.4 MG/DL (0.6-1.3); GFR ESTIMATE (CALCULATED) 8 mL/min/ (58.99-99999); GLUCOSE 256 mg/dL (70-99); POTASSIUM 3.3 MEQ/L (3.7-5.4); SODIUM 134 MEQ/L (136-147); UREA NITROGEN (BUN) 41 mg/dL (9-23)
[2017-05-18 08:57] VITALS: BP 126/66
[2017-05-18 10:44] VITALS: BP 127/65
[2017-05-18 14:24] LABS: INTER. NORMALIZED RATIO 1.8
[2017-05-18 14:27] LABS: PTT 89.1 SEC (25-37)
[2017-05-18 20:22] VITALS: BP 116/65
[2017-05-19] VITALS (7 sets, daily range): BP systolic 88–122; BP diastolic 50–85
[2017-05-19 07:03] LABS: BASOPHIL (%) 0.1 % (0-1); EOSINOPHIL (%) 0 % (0-5); HEMATOCRIT 26.8 % (38.0-50.0); HEMOGLOBIN 8.8 G/DL (12.5-16.6); IMMATURE GRANULOCYTE (%) 0.6 % (0.0-0.7); LYMPHOCYTE (%) 10.7 % (15-42); LYMPHOCYTE COUNT 0.9 K/uL (1.0-2.8); MCH 28.5 PG (29.0-34.0); MCHC 32.8 G/DL (30.0-36.0); MCV 86.7 FL (86-99); MONOCYTE (%) 8.4 % (3-12); MONOCYTE COUNT 0.7 K/uL (0-0.8); NEUTROPHIL (%) 80.2 % (45-76); NEUTROPHIL COUNT 6.4 K/uL (1.8-6.4); PLATELET COUNT 163 K/uL (156-360); RBC DIS.WIDTH-CV 17.3 % (11.8-14.6); RBC DIS.WIDTH-SD 55.3 % (39-53); RED BLOOD COUNT 3.09 M/uL (4.00-5.50)
[2017-05-19 07:18] LABS: INTER. NORMALIZED RATIO 1.8
[2017-05-19 07:21] LABS: PTT 79.7 SEC (25-37)
[2017-05-19 07:54] LABS: ALBUMIN 2.3 G/DL (3.2-4.8); ALKALINE PHOSPHATASE 74 IU/L (3-129); ALT (GPT) 12 IU/L (3-49); AST (GOT) 18 IU/L (2-34); CHLORIDE 94 MEQ/L (99-109); CREATININE 7.4 MG/DL (0.6-1.3); GFR ESTIMATE (CALCULATED) 8 mL/min/ (58.99-99999); GLUCOSE 233 mg/dL (70-99); MAGNESIUM 1.4 mg/dl (1.3-2.7); PHOSPHORUS 4.8 mg/dL (2.5-4.9); POTASSIUM 3.2 MEQ/L (3.7-5.4); SODIUM 134 MEQ/L (136-147); TOTAL BILIRUBIN 0.4 MG/DL (0.0-1.0); UREA NITROGEN (BUN) 39 mg/dL (9-23)
[2017-05-20 03:00] VITALS: BP 120/74
[2017-05-20 06:21] LABS: CHLORIDE 94 MEQ/L (99-109); GFR ESTIMATE (CALCULATED) 7 mL/min/ (58.99-99999); GLUCOSE 136 mg/dL (70-99); SODIUM 134 MEQ/L (136-147); UREA NITROGEN (BUN) 39 mg/dL (9-23)
[2017-05-20 08:22] VITALS: BP 99/61
[2017-05-20 11:17] VITALS: BP 117/63
[2017-05-20 20:22] VITALS: BP 112/63
[2017-05-21 00:36] VITALS: BP 119/60
[2017-05-21 03:54] VITALS: BP 110/58
[2017-05-21 06:09] LABS: CHLORIDE 95 MEQ/L (99-109); POTASSIUM 3.2 MEQ/L (3.7-5.4); SODIUM 135 MEQ/L (136-147)
[2017-05-21 06:15] LABS: CREATININE 7.9 MG/DL (0.6-1.3); GFR ESTIMATE (CALCULATED) 7 mL/min/ (58.99-99999); UREA NITROGEN (BUN) 41 mg/dL (9-23)
[2017-05-21 06:16] LABS: GLUCOSE 275 mg/dL (70-99)
[2017-05-21 08:25] VITALS: BP 117/67
[2017-05-21 10:36] VITALS: BP 130/64
[2017-05-21 15:23] VITALS: BP 140/69
[2017-05-21 19:45] VITALS: BP 127/68
[2017-05-22] VITALS: BP 118/68
[2017-05-22 04:20] VITALS: BP 115/88
[2017-05-22 06:54] LABS: BASOPHIL (%) 0.1 % (0-1); EOSINOPHIL (%) 0.4 % (0-5); HEMATOCRIT 25.7 % (38.0-50.0); HEMOGLOBIN 8.6 G/DL (12.5-16.6); IMMATURE GRANULOCYTE (%) 2.1 % (0.0-0.7); LYMPHOCYTE (%) 16.9 % (15-42); LYMPHOCYTE COUNT 1.8 K/uL (1.0-2.8); MCH 28.6 PG (29.0-34.0); MCHC 33.5 G/DL (30.0-36.0); MCV 85.4 FL (86-99); MONOCYTE (%) 8.1 % (3-12); MONOCYTE COUNT 0.9 K/uL (0-0.8); NEUTROPHIL (%) 72.4 % (45-76); NEUTROPHIL COUNT 7.7 K/uL (1.8-6.4); NRBC (%) 0.2 /100 WBC (0-0); PLATELET COUNT 158 K/uL (156-360); RBC DIS.WIDTH-CV 17.3 % (11.8-14.6); RBC DIS.WIDTH-SD 53.6 % (39-53); RED BLOOD COUNT 3.01 M/uL (4.00-5.50); WHITE BLOOD COUNT 10.6 K/uL (4.1-10.2)
[2017-05-22 07:15] VITALS: BP 125/65
[2017-05-22 07:38] LABS: CHLORIDE 97 MEQ/L (99-109); CREATININE 7.5 MG/DL (0.6-1.3); GFR ESTIMATE (CALCULATED) 8 mL/min/ (58.99-99999); POTASSIUM 2.8 MEQ/L (3.7-5.4); SODIUM 137 MEQ/L (136-147); UREA NITROGEN (BUN) 36 mg/dL (9-23)
[2017-05-22 07:42] LABS: GLUCOSE 89 mg/dL (70-99)
[2017-05-22 11:40] VITALS: BP 119/60
[2017-05-22] MEDS ORDERED: NITROPASTE 2%1 GM TD (12:20)
[2017-05-22] MEDS ORDERED: ZOFRAN ODT4 MG PO (12:42)
== END 2017-05-22 15:12 | disposition home or self-care (01) | DRG 871 ==
LOC: EME 23:41 → 4EAST 05-15 01:34 → EDOF 05-15 01:34 → ENRESERV 05-15 01:35 → 4EAST 05-15 02:32
PROVIDERS: Emergency Medicine; Hospitalist; Internal Medicine; Internal Medicine Cardiovascular Disease; Internal Medicine Nephrology; Physician Assistant; Physician Assistant Medical; Student in an Organized Health Care Education/Training Program
PROC: 3E1M39Z Irrigation of Peritoneal Cavity using Dialysate, Percutaneous Approach (ICD-10-PCS; principal; 2017-05-16)
DX: A41.9 Sepsis, unspecified organism (principal); I22.2 Subsequent non-ST elevation (NSTEMI) myocardial infarction; I21.4 Non-ST elevation (NSTEMI) myocardial infarction; E11.22 Type 2 diabetes mellitus with diabetic chronic kidney disease; E11.65 Type 2 diabetes mellitus with hyperglycemia; E87.1 Hypo-osmolality and hyponatremia; I50.20 Unspecified systolic (congestive) heart failure; I13.2 Hypertensive heart and chronic kidney disease with heart failure and with stage 5 chronic kidney disease, or end stage renal disease; N18.6 End stage renal disease; I25.10 Atherosclerotic heart disease of native coronary artery without angina pectoris; H54.8 Legal blindness, as defined in USA; K02.9 Dental caries, unspecified; E87.6 Hypokalemia; K04.7 Periapical abscess without sinus; K21.9 Gastro-esophageal reflux disease without esophagitis; M27.2 Inflammatory conditions of jaws; J32.0 Chronic maxillary sinusitis; F43.21 Adjustment disorder with depressed mood; I49.3 Ventricular premature depolarization; E78.5 Hyperlipidemia, unspecified; D63.1 Anemia in chronic kidney disease; I34.0 Nonrheumatic mitral (valve) insufficiency; R19.7 Diarrhea, unspecified; Z66 Do not resuscitate; Z51.5 Encounter for palliative care; L89.619 Pressure ulcer of right heel, unspecified stage; L89.629 Pressure ulcer of left heel, unspecified stage; Z79.82 Long term (current) use of aspirin; Z95.1 Presence of aortocoronary bypass graft; Z99.2 Dependence on renal dialysis; Z79.4 Long term (current) use of insulin; Z86.73 Personal history of transient ischemic attack (TIA), and cerebral infarction without residual deficits; Z95.5 Presence of coronary angioplasty implant and graft; Z88.0 Allergy status to penicillin; Z88.8 Allergy status to other drugs, medicaments and biological substances; Z91.041 Radiographic dye allergy status; Z91.013 Allergy to seafood
CPT/HCPCS: 70486; 71045; 71046; 80048; 80053; 82948; 83735; 84100; 84484; 85025; 85027; 85610; 85730; 87493; 89051; 93005; 99281; 99285; C1755; J0131; J0881; J1644; J1815; J2270; J2405; J2765; J3010; J3480; J7040; J7050

== ENCOUNTER 2017-07-02 15:51 | Inpatient (IN) | payer OTHER, BC ==
[~2017-07-02] VITALS: Ht 177.8 cm; Wt 86.3 kg
[~2017-07-02 15:51] MED LIST changes: +CLEOCIN300 MG PO; +NITROPASTE 2%1 GM TD; +TYLENOL WITH C1 EACH PO
[2017-07-02 16:49] LABS: BASOPHIL (%) 0.2 % (0-1); EOSINOPHIL (%) 0.6 % (0-5); EOSINOPHIL COUNT 0.1 K/uL (0-0.3); HEMATOCRIT 25.5 % (38.0-50.0); HEMOGLOBIN 8.5 G/DL (12.5-16.6); IMMATURE GRANULOCYTE (%) 0.6 % (0.0-0.7); LYMPHOCYTE COUNT 1.6 K/uL (1.0-2.8); MCH 28.5 PG (29.0-34.0); MCHC 33.3 G/DL (30.0-36.0); MCV 85.6 FL (86-99); MONOCYTE (%) 5.2 % (3-12); MONOCYTE COUNT 0.8 K/uL (0-0.8); NEUTROPHIL (%) 82.4 % (45-76); PLATELET COUNT 373 K/uL (156-360); RBC DIS.WIDTH-SD 46.6 % (39-53); RED BLOOD COUNT 2.98 M/uL (4.00-5.50); WHITE BLOOD COUNT 14.6 K/uL (4.1-10.2)
[2017-07-02 17:02] LABS: CHLORIDE 91 mEq/L (99-109); POTASSIUM 3.3 mEq/L (3.7-5.4); SODIUM 129 mEq/L (136-147)
[2017-07-02 17:03] LABS: GLUCOSE 312 mg/dL (70-99)
[2017-07-02 17:07] LABS: CREATININE 6.3 mg/dL (0.6-1.3); GFR ESTIMATE (CALCULATED) 10 mL/min/ (58.99-99999)
[2017-07-02 17:08] LABS: UREA NITROGEN (BUN) 32 mg/dL (9-23)
[2017-07-02] MEDS ORDERED: NITROGLYCERIN1 EAC1 TD (18:37)
[2017-07-02] MEDS ORDERED: POTASSIUM CHLO10 ME4 PO (18:38)
[2017-07-02] MEDS ORDERED: OXYCODONE HCL5 MG PO (18:39)
[2017-07-02 21:28] VITALS: BP 118/64
[2017-07-03] VITALS (12 sets, daily range): BP systolic 66–108; BP diastolic 42–67
[2017-07-03 06:37] LABS: CHLORIDE 97 MEQ/L (99-109); CREATININE 5.9 MG/DL (0.6-1.3); GFR ESTIMATE (CALCULATED) 10 mL/min/ (58.99-99999); GLUCOSE 276 mg/dL (70-99); POTASSIUM 3.8 MEQ/L (3.7-5.4); SODIUM 133 MEQ/L (136-147); UREA NITROGEN (BUN) 32 mg/dL (9-23)
[2017-07-03 06:40] LABS: HEMATOCRIT 21.5 % (38.0-50.0); MCH 28.4 PG (29.0-34.0); MCHC 32.1 G/DL (30.0-36.0); MCV 88.5 FL (86-99); RBC DIS.WIDTH-SD 49.1 % (39-53); RED BLOOD COUNT 2.43 M/uL (4.00-5.50); WHITE BLOOD COUNT 10.1 K/uL (4.1-10.2)
[2017-07-03 06:46] LABS: PLAT.SUFFICIENCY ADEQUATE
[2017-07-03 06:50] LABS: HEMOGLOBIN 6.9 G/DL (12.5-16.6); PLATELET COUNT 230 K/uL (156-360)
[2017-07-03 08:49] LABS: HEMATOCRIT 22.2 % (38.0-50.0); HEMOGLOBIN 7.3 G/DL (12.5-16.6); MCV 87.4 FL (86-99)
[2017-07-03 16:58] LABS: HEMATOCRIT 25.2 % (38.0-50.0); HEMOGLOBIN 8.1 G/DL (12.5-16.6); MCV 88.4 FL (86-99)
== END 2017-07-04 01:20 | DRG 871 ==
LOC: EME 15:51 → EDOF 19:10 → 5EAST 19:10 → ENRESERV 19:15 → 5EAST 20:18
PROVIDERS: Hospitalist; Internal Medicine; Physician Assistant
PROC: 30233N1 Transfusion of Nonautologous Red Blood Cells into Peripheral Vein, Percutaneous Approach (ICD-10-PCS; principal; 2017-07-03)
PROC: 3E1M39Z Irrigation of Peritoneal Cavity using Dialysate, Percutaneous Approach (ICD-10-PCS; 2017-07-03)
DX: A41.9 Sepsis, unspecified organism (principal); E11.69 Type 2 diabetes mellitus with other specified complication; M86.641 Other chronic osteomyelitis, right hand; L03.011 Cellulitis of right finger; L89.619 Pressure ulcer of right heel, unspecified stage; L89.629 Pressure ulcer of left heel, unspecified stage; L03.115 Cellulitis of right lower limb; L03.116 Cellulitis of left lower limb; I95.9 Hypotension, unspecified; E11.65 Type 2 diabetes mellitus with hyperglycemia; I13.2 Hypertensive heart and chronic kidney disease with heart failure and with stage 5 chronic kidney disease, or end stage renal disease; E11.22 Type 2 diabetes mellitus with diabetic chronic kidney disease; N18.6 End stage renal disease; I50.9 Heart failure, unspecified; D63.1 Anemia in chronic kidney disease; E87.2 Acidosis; L97.819 Non-pressure chronic ulcer of other part of right lower leg with unspecified severity; E11.40 Type 2 diabetes mellitus with diabetic neuropathy, unspecified; E11.319 Type 2 diabetes mellitus with unspecified diabetic retinopathy without macular edema; Z91.19 Patient's noncompliance with other medical treatment and regimen; Z99.2 Dependence on renal dialysis; E78.5 Hyperlipidemia, unspecified; I25.2 Old myocardial infarction; I25.10 Atherosclerotic heart disease of native coronary artery without angina pectoris; G43.909 Migraine, unspecified, not intractable, without status migrainosus; H54.8 Legal blindness, as defined in USA; K21.9 Gastro-esophageal reflux disease without esophagitis; F32.9 Major depressive disorder, single episode, unspecified; Z66 Do not resuscitate; Z79.4 Long term (current) use of insulin; Z79.82 Long term (current) use of aspirin; Z88.0 Allergy status to penicillin; Z95.5 Presence of coronary angioplasty implant and graft
CPT/HCPCS: 73130; 80048; 80202; 82948; 83605; 85014; 85018; 85025; 85027; 86850; 86900; 86901; 86905; 86920; 87040; 87070; 87075; 87205; 99281; 99285; J1644; J1956; J2270; J2405; J3370; J7030; J7040; J7050; P9016; P9047